=== PATIENT | male | born 1990 | race Caucasian/White ===

== ENCOUNTER 2021-03-04 05:18 | Emergency (ER) | payer OTHER ==
[2021-03-04 05:33] VITALS: BP 138/85; PULSE 77; RESP 18; TEMP 98.2
[2021-03-04] MEDS ORDERED: PROPARACAINE 0.5% OPHTH DROPS 15 ML BTL BOTH EYES STA (05:38)
[2021-03-04] MEDS ORDERED: FLUORESCEIN STRIPS 1 MG STRIP RIGHT EYE STA (06:06)
[2021-03-04] MEDS ORDERED: DIPH,PERTUS(ACELL)TETVAC-LF 0.5 ML VIAL IM ONE (06:27)
[2021-03-04] MEDS ORDERED: OFLOXACIN 0.3% OPHTH DROPS 5 ML BOTTLE RIGHT EYE STA (06:27)
--- NOTE | 2021-03-04 06:35 | ED ---
General Adult HPI - General Chief complaint: Eye Problems Stated complaint: Poss foreign body in eye Time Seen by Provider: 03/04/21 06:05 Source: patient, RN notes reviewed Mode of arrival: ambulatory Limitations: physical limitation - History of Present Illness Initial comments: 30-year-old male presents to the emergency room for right eye pain. 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 States it is painful to open and is watering. Patient does wear contacts but has not worn them for about a week. Patient denies visual changes. This is not up-to-date. Patient has no other complaints at this time including shortness of breath, chest pain, abdominal pain, nausea or vomiting, headache, or visual changes. - Related Data Previous Rx's Medication Instructions Recorded Ofloxacin 0.3% Ophth Soln [Ocuflox 2 drops RIGHT EYE QID 5 Days #10 ml 03/04/21 Ophth Soln] Allergies Allergy/AdvReac Type Severity Reaction Status Date / Time No Known Allergies Allergy Verified 03/04/21 05:33 Review of Systems ROS Statement: Those systems with pertinent positive or pertinent negative responses have been documented in the HPI. ROS Other: All systems not noted in ROS Statement are negative. Past Medical History Additional Past Medical History / Comment(s): eye-paintball injury History of Any Multi-Drug Resistant Organisms: None Reported Past Surgical History: No Surgical Hx Reported Past Psychological History: No Psychological Hx Reported Smoking Status: Current every day smoker Past Alcohol Use History: Occasional Past Drug Use History: Marijuana General Exam Limitations: physical limitation General appearance: alert, in no apparent distress Head exam: Present: atraumatic Eye exam: Present: PERRL, EOMI, conjunctival injection. Absent: scleral icterus, nystagmus ENT exam: Present: normal exam, mucous membranes moist Neck exam: Present: normal inspection, full ROM. Absent: tenderness Respiratory exam: Present: normal lung sounds bilaterally. Absent: respiratory distress, wheezes Cardiovascular Exam: Present: regular rate, normal rhythm, normal heart sounds Course Vital Signs 03/04/21 05:25 Temperature 98.2 F Pulse Rate 77 Respiratory 18 Rate Blood Pressure 138/85 O2 Sat by Pulse 99 Oximetry Medical Decision Making - Medical Decision Making Vitals are stable. Proparacaine was used to anesthetize the eye and this relieved patient's pain. Fluorosceine and Wood's lamp did reveal a small corneal abrasion. I did irrigate the eye with saline, no evidence of foreign body. I did flip both eyelids and there is no foreign body. Visual acuity is 30 OD, 20/25 OS. We will treat with antibiotic therapy to cover for contact lens user and update tetanus. He will follow up with ophthalmology. He will return here or any worsening symptoms. Disposition Clinical Impression: Corneal abrasion, right Disposition: HOME SELF-CARE Condition: Good Instructions (If sedation given, give patient instructions): Corneal Abrasion (ED) Additional Instructions: Please use antibiotic drops as directed. Follow up with ophthalmology. Return to the emergency room for any worsening symptoms. Prescriptions: Ofloxacin 0.3% Ophth Soln [Ocuflox Ophth Soln] 2 drops RIGHT EYE QID 5 Days #10 ml Is patient prescribed a controlled substance at d/c from ED?: No Referrals: Robert Clarke MD [Primary Care Provider] - 1-2 days Tom Polo MD [STAFF PHYSICIAN] - 1-2 days Time of Disposition: 06:33
== END 2021-03-04 07:04 | disposition home or self-care (01) ==
LOC: EC 05:18
DX: S05.01XA Injury of conjunctiva and corneal abrasion without foreign body, right eye, initial encounter (principal); F17.200 Nicotine dependence, unspecified, uncomplicated; F12.90 Cannabis use, unspecified, uncomplicated; X58.XXXA Exposure to other specified factors, initial encounter
CPT/HCPCS: 90471; 90715; 99283

== ENCOUNTER → 2021-09-08 | Outpatient (CLI) | payer OTHER ==
--- NOTE | 2021-09-08 21:44 | MR ---
EXAMINATION TYPE: MR knee LT wo con DATE OF EXAM: 09/08/2021 COMPARISON: Left knee x-ray July 15, 2021 HISTORY: Twisted left knee x 2 months, pain. Joint effusion. TECHNIQUE: Multiplanar, multisequence imaging of the left knee is performed without IV contrast. FINDINGS: MEDIAL MENISCUS: Anterior and posterior horns are intact without tear. LATERAL MENISCUS: Anterior and posterior horns are intact without tear. CRUCIATE LIGAMENTS: The anterior and posterior cruciate ligaments are intact and unremarkable. COLLATERAL LIGAMENTS: The medial collateral ligament and lateral collateral ligament complex are inta ct and unremarkable. EXTENSOR MECHANISM: Visualized quadriceps and patellar tendons are intact. EFFUSION: No significant suprapatellar joint effusion. POPLITEAL CYST: No popliteal/horton cyst. TRICOMPARTMENT SPACES: Tricompartment joint spaces are maintained. No significant spurring is present . CARTILAGE: Tricompartmental articular cartilage is preserved. BONE MARROW SIGNAL: No focal abnormal marrow signal is appreciated. OTHER: There is partial visualization of heterogeneous large abnormalities suspected fluid collectio n that is slightly hypointense relative to muscle on T1-weighted images and has heterogeneous T2 hype rintensity along the posterior slightly lateral aspect of the distal femur measuring up to 8.0 cm tra nsversely by 7.1 cm AP diameter axial image 35 causing popliteal vessels to be deviated medially with local mass effect lying between the muscles of the distal femur. Findings are suspicious for a large hematoma but underlying cystic mass not entirely excluded. IMPRESSION: No meniscal or ligamentous tear is seen. Partial visualization of abnormal large posterio r slightly lateral heterogeneous thin-walled area suspect complex fluid or hematoma immediately adjac ent to the distal femur between muscle fibers with local mass effect. Cystic soft tissue mass or neop lasm is not entirely excluded. Advise follow-up and clinical correlation. Patient may benefit with de dicated left femur MRI to evaluate extent of the area of concern and assess for possible muscle or te ndon rupture.
== END | disposition home or self-care (01) ==
LOC: RADMRIMAIN 10:29
PROVIDERS: ATTEND Orthopaedic Surgery
DX: M25.462 Effusion, left knee (principal)

== ENCOUNTER → 2021-10-07 | Outpatient (CLI) | payer OTHER ==
--- NOTE | 2021-10-08 03:31 | MR ---
EXAMINATION TYPE: MR knee LT wo/w con DATE OF EXAM: 10/07/2021 COMPARISON: None HISTORY: Soft tissue mass x 2, posterior and lateral aspect. Markers placed on mass. CONTRAST: Standard multiplanar, multisequence MRI departmental protocol images were obtained without contrast a nd with 9 mL intravenous Gadavist gadolinium contrast. There is small knee joint effusion. There is large posterior subcutaneous fluid collection posterior to the distal femur that measures 7 x 3 cm. There is anterior adjacent large complex mass that measur es 8 x 4 cm adjacent to the posterior distal femur. The anterior and posterior cruciate ligaments are intact. There are small intrasubstance horizontal t ear of the posterior horn of the medial meniscus. The lateral meniscus is intact. The collateral liga ments are intact. No fracture seen. No evidence of focal bone destruction. There is some patchy enhancement in the anterior mass adjacent to the femur. There is no pathologic e nhancement of the posterior mass. IMPRESSION: There is a complex oval-shaped mass posterior to the femur with patchy pathologic enhancement. This p redominantly cystic mass without enhancement that is in the subcutaneous tissues. The pathologic enha ncement raises the possibility of a tumor such as sarcoma.. Follow-up is recommended. No invasion see n of the adjacent tissues. No evidence of ligamentous tear. Small knee joint effusion. Minimal intrasubstance degeneration of th e posterior horn of the medial meniscus.
== END | disposition home or self-care (01) ==
LOC: RADMRIMAIN 10:33
PROVIDERS: ATTEND Surgery Surgical Oncology
DX: D48.1 Neoplasm of uncertain behavior of connective and other soft tissue (principal)
CPT/HCPCS: 73723; A9585

== ENCOUNTER → 2021-11-08 | Outpatient (CLI) | payer OTHER ==
--- NOTE | 2021-11-08 13:44 | CT ---
EXAMINATION TYPE: CT ChestAbdPelvis w con DATE OF EXAM: 11/08/2021 COMPARISON: None. 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 Automated Exposure Control for Dose Reduction was Utilized. CONTRAST: CT scan of the thorax, abdomen and pelvis is performed with IV Contrast, patient injected with 70 mL of Isovue 300. FINDINGS: LUNGS: Mild dependent atelectasis in the lower lobe with mild linear scarring and/or atelectasis post erior lung bases. No suspicious focal consolidation There is no pleural effusion or pneumothorax see n. The tracheobronchial tree is patent. No suspicious greater than 5 mm pulmonary nodules or masses. MEDIASTINUM: There are no greater than 1 cm hilar or mediastinal lymph nodes. No cardiomegaly or pe ricardial effusion is seen. Heterogeneous linear soft tissue in the anterior superior mediastinum li ghassan reflects residual thymus tissue. LIVER/GB: No significant abnormality is appreciated. PANCREAS: No significant abnormality is seen. SPLEEN: No significant abnormality is seen. ADRENALS: No significant abnormality is seen. KIDNEYS: No significant abnormality is seen. BOWEL: Oral Contrast reaches level proximal sigmoid colon. No suspicious small large bowel dilatation . Mild wall thickening of the terminal ileum is nonspecific finding and should be correlated clinical ly. GENITAL ORGANS: No gross abnormality seen. LYMPH NODES: No greater than 1cm abdominal or pelvic lymph nodes are appreciated. Few prominent but s ubcentimeter lymph nodes throughout the mesentery. OSSEOUS STRUCTURES: No significant abnormality is seen. OTHER: No significant additional abnormality is seen. IMPRESSION: No suspicious mass or adenopathy to suggest metastatic neoplasm.
== END | disposition home or self-care (01) ==
LOC: RADCTMAIN 10:50
PROVIDERS: ATTEND Surgery Surgical Oncology
DX: C49.9 Malignant neoplasm of connective and soft tissue, unspecified (principal)
CPT/HCPCS: 71260; 74177; Q9967

== ENCOUNTER 2021-12-06 09:32 | Inpatient (IN) | payer OTHER ==
[2021-12-06] MEDS: SODIUM CHLORIDE 0.9% 1,000 ML IV SCH ×2 (11:00→16:28)
[2021-12-06 11:14] LABS: Basophils # (A) 0.1 k/uL (0-0.2); Basophils % (A) 1 %; Eosinophils # (A) 0.4 k/uL (0-0.7); Eosinophils % (A) 3 %; HCT 44.4 % (39.0-53.0); HGB 14.5 gm/dL (13.0-17.5); Lymphocytes # (A) 2.5 k/uL (1.0-4.8); Lymphocytes % (A) 22 %; MCH 28.9 pg (25.0-35.0); MCHC 32.6 g/dL (31.0-37.0); MCV 88.7 fL (80.0-100.0); Mean Platelet Volume 7.7; Monocytes # (A) 0.6 k/uL (0-1.0); Monocytes % (A) 5 %; Neutrophils # (A) 7.8 k/uL (1.3-7.7); Neutrophils % (A) 68 %; Platelet Count 247 k/uL (150-450); RDW 12.8 % (11.5-15.5); WBC 11.5 k/uL (3.8-10.6)
[2021-12-06 11:25] LABS: ALT 65 U/L (4-49); AST 43 U/L (17-59); Alkaline Phosphatase 73 U/L (38-126); Blood Urea Nitrogen 14 mg/dL (9-20); Calcium 8.9 mg/dL (8.4-10.2); Chloride 103 mmol/L (98-107); Glucose 98 mg/dL (74-99); Potassium 4.6 mmol/L (3.5-5.1); Sodium 136 mmol/L (137-145); Total Bilirubin 0.3 mg/dL (0.2-1.3)
[2021-12-06 11:26] LABS: African American GFR (CKD) >90 (>60 ml/min/1.73 sqM); Albumin 4.2 g/dL (3.5-5.0); Albumin/Globulin Ratio 1.9; Anion Gap 8 mmol/L; Carbon Dioxide 25 mmol/L (22-30); Globulin 2.2 g/dL; Non-African American GFR(CKD) >90 (>60 ml/min/1.73 sqM); Total Protein 6.4 g/dL (6.3-8.2)
[2021-12-06] MEDS ORDERED: CYCLOBENZAPRINE 10 MG TAB PO PRN (11:46)
[2021-12-06] MEDS ORDERED: ONDANSETRON 4 MG/2 ML VIAL IVP PRN (11:50)
[2021-12-06 13:14] LABS: Appearance,Urine Clear (Clear); Bilirubin,Urine Negative (Negative); Blood,Urine Negative (Negative); Color,Urine Yellow; Glucose,Urine (UA) Negative (Negative); Ketones,Urine Negative (Negative); Leukocyte Esterase,Urine Trace (Negative); Mucus,Urine Rare /hpf; Nitrite,Urine Negative (Negative); PH, Urine 5.5 (5.0-8.0); Protein,Urine Negative (Negative); RBC,Urine <1 /hpf (0-5); Specific Gravity,Urine 1.024 (1.001-1.035); Urobilinogen,Urine <2.0 mg/dL (<2.0); WBC,Urine 1 /hpf (0-5)
[2021-12-06] MEDS ORDERED: APREPITANT 130 MG/18 ML VIAL IVP ONE (14:00)
[2021-12-06] MEDS: ONDANSETRON 16 MG in SODIUM CHLORIDE 0.9% 50 ML IVPB SCH (15:03)
[2021-12-06] MEDS: DEXAMETHASONE SOD PHOSPHATE 10 MG/ML 1 ML VIAL IVP SCH (15:03)
[2021-12-06] MEDS: FAMOTIDINE 20 MG/2 ML VIAL IVP SCH (15:03)
--- NOTE | 2021-12-06 15:17 | P.HPIM ---
History of Present Illness H&P Date: 12/06/21 Chief Complaint: Myxoid liposarcoma Mr. Katz is a 31 year old gentleman with a PMHx significant for cigarette smoking who presents for chemotherapy for myxoid liposarcoma of the left leg. He notes he first noticed this about 4-5 months ago following a mechanical fall where he rolled his right ankle. The swelling on the posterior left leg was noted at that time. Since then, it had progressive growth behind the knee of the left leg. MRI of the left knee on 09/08/21 noted heterogenous lesion on lateral aspect of left femur measuring 8 x 7.1 cm with popliteal vessels deviated medially and mass effect on muscles of the left femur. MRI of left knee on 10/07/21 noted anterior large complex mass measuring 8 x 4 cm adjacent to posterior distal femur. No evidence of bone destruction or ligament tear of the left knee was noted. Core needle biopsy of the mass on 10/11/21 noted myxoid liposarcoma without necrosis, but did note focus of high grade cells approximating < 5%. CT c/a/p on 11/08/21 noted no evidence of metastasis or adenopathy He was seen by Dr. Lane of medical oncology and Dr. Cross of orthopedic oncology with plan for neoadjuvant AIM for 3 cycles followed by neoadjuvant radiation therapy. This would then be followed by surgery. Currently, he feels well. He is planning on stopping smoking once chemotherapy starts. He denies any constitutional symptoms, chest pain, dyspnea, hemoptysis, abdominal pain, nausea, vomiting, or diarrhea. He has some limitation in bending left knee, but is otherwise ambulatory on his legs with mild pain. He does have tingling sensation down left thigh. He presents for cycle 1 of neoadjuvant AIM chemotherapy. Review of Systems 14 point review of systems was conducted with pertinent positives and negatives per HPI. Past Medical History Past Medical History: No Reported History Additional Past Medical History / Comment(s): eye-paintball injury History of Any Multi-Drug Resistant Organisms: None Reported Past Surgical History: No Surgical Hx Reported Additional Past Surgical History / Comment(s): Left leg surgery Past Anesthesia/Blood Transfusion Reactions: No Reported Reaction Past Psychological History: No Psychological Hx Reported Smoking Status: Current every day smoker Past Alcohol Use History: Occasional Past Drug Use History: Marijuana - Past Family History Mother Family Medical History: No Reported History Additional Family Medical History / Comment(s): Father: Non-Hodgkin's Lymphoma Father Family Medical History: Cancer, Congestive Heart Failure (CHF), Diabetes Mellitus Additional Family Medical History / Comment(s): Non-Castillo Medications and Allergies Home Medications Medication Instructions Recorded Confirmed Type Cyclobenzaprine [Flexeril] 10 mg PO DAILY PRN 07/15/21 07/15/21 History Ibuprofen [Motrin Ib] 800 mg PO Q8H PRN 07/15/21 07/15/21 History RX: predniSONE 50 mg PO DAILY 5 Days #5 tab 07/15/21 Rx Allergies Allergy/AdvReac Type Severity Reaction Status Date / Time No Known Allergies Allergy Verified 07/15/21 11:47 Physical Exam Vitals: Vital Signs Temp Pulse Resp BP Pulse Ox 12/06/21 10:47 97.7 F 79 18 112/70 97 Intake and Output 12/05/21 12/06/21 12/06/21 22:59 06:59 14:59 Other: Weight 93.1 kg - Constitutional General appearance: average body habitus, cooperative, no acute distress - EENT Eyes: EOMI - Respiratory Respiratory: bilateral: CTA, negative: rales, rhonchi, wheezing - Cardiovascular Rhythm: regular Heart sounds: normal: S1, S2 - Gastrointestinal General gastrointestinal: normal bowel sounds, no organomegaly, no tenderness - Integumentary Integumentary: no rash - Neurologic Neurologic: CNII-XII intact - Musculoskeletal Palpable posterior upper leg mass above the popliteal fossa without tenderness - Psychiatric Psychiatric: A&O x's 3, appropriate affect Results CBC & Chem 7: 12/06/21 10:46 12/06/21 10:46 Labs: Abnormal Lab Results - Last 24 Hours (Table) 12/06/21 12/06/21 12/06/21 Range/Units 10:46 10:46 12:58 WBC 11.5 H (3.8-10.6) k/uL Neutrophils # 7.8 H (1.3-7.7) k/uL Sodium 136 L (137-145) mmol/L ALT 65 H (4-49) U/L Ur Leukocyte Esterase Trace H (Negative) Urine Mucus Rare H (None) /hpf Thrombosis Risk Factor Assmnt - Choose All That Apply Any of the Below Risk Factors Present?: Yes Assessment and Plan Assessment: Mr. Katz is a 31 year old gentleman with a PMHx significant for cigarette smoking who presents for cycle 1 of neoadjuvant AIM chemotherapy for myxoid liposarcoma of the left leg. 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 -MRI of left knee on 10/07/21 noted anterior large complex mass measuring 8 x 4 cm adjacent to posterior distal femur -CT c/a/p on 11/08/21 noted no evidence of metastatic disease -Following multidisciplinary discussion, he will undergo neoadjuvant AIM chemotherapy with 3 cycles followed by possible adjuvant radiation therapy prior to surgical resection -Echo preliminary report showing EF 55-60% today -Proceed with cycle 1, day 1 of AIM chemotherapy -Doxorubicin 25 mg/m2, Ifosfamide 2500 mg/m2, Mesna IV for days 1,2, and 3 -He will receive anti-emetics on day 1 prior to treatment due to high emsis risk -He will be monitored for ifosfamide neurotoxicity during treatment. If there is any evidence for this (confusion, cerebellar ataxia), chemotherapy should be stopped immediately and started IV Methylene Blue 50 mg q4h -CMP, CBC, and UA daily
[2021-12-06] MEDS: MESNA IV SCH ×2 (16:14→20:14)
[2021-12-06] MEDS: SODIUM CHLORIDE 0.9% IV SCH ×4 (16:14→20:14)
[2021-12-06] MEDS: IFOSFAMIDE IV SCH (16:46)
[2021-12-06] MEDS: DOXORUBICIN HCL IV SCH (16:46)
[2021-12-06] MEDS: OLANZapine 2.5 MG TAB PO SCH (21:43)
[2021-12-07] MEDS: SODIUM CHLORIDE 0.9% IV SCH ×5 (00:13→23:58)
[2021-12-07] MEDS: MESNA IV SCH ×3 (00:13→23:58)
[2021-12-07] MEDS: SODIUM CHLORIDE 0.9% 1,000 ML IV SCH ×3 (05:22→18:14)
[2021-12-07 08:14] LABS: Appearance,Urine Clear (Clear); Bilirubin,Urine Negative (Negative); Blood,Urine Negative (Negative); Color,Urine Colorless; Glucose,Urine (UA) Negative (Negative); Ketones,Urine Trace (Negative); Leukocyte Esterase,Urine Negative (Negative); Nitrite,Urine Negative (Negative); Protein,Urine Negative (Negative); Specific Gravity,Urine 1.009 (1.001-1.035); Urobilinogen,Urine <2.0 mg/dL (<2.0)
[2021-12-07 09:14] LABS: Basophils # (A) 0.02 X 10*3/uL (0.00-0.10); Basophils % (A) 0.1 %; Eosinophils # (A) 0 X 10*3/uL (0.04-0.35); Eosinophils % (A) 0 %; HCT 43.9 % (39.6-50.0); HGB 14.2 g/dL (13.0-17.0); Immature Grans, Automated 0.9 %; Lymphocytes # (A) 1.37 X 10*3/uL (0.90-5.00); Lymphocytes % (A) 9.3 %; MCH 28.5 pg (27.0-32.0); MCHC 32.3 g/dL (32.0-37.0); MCV 88.2 fL (80.0-97.0); Mean Platelet Volume 9.6 fL (9.5-12.2); Monocytes # (A) 0.46 X 10*3/uL (0.20-1.00); Monocytes % (A) 3.1 %; NRBC Per 100 WBC 0 /100 WBCS (0.0-0.0); Neutrophils # (A) 12.77 X 10*3/uL (1.80-7.70); Neutrophils % (A) 86.6 %; Platelet Count 270 X 10*3/uL (140-440); RBC 4.98 X 10*6/uL (4.40-5.60); RDW 12.5 % (11.5-14.5); WBC 14.76 X 10*3/uL (4.50-10.00)
[2021-12-07 11:16] LABS: ALT 112 U/L (10-49); AST 65 U/L (14-35); African American GFR (CKD) 130.5 (60.0-200.0); Albumin 4.2 g/dL (3.8-4.9); Albumin/Globulin Ratio 1.83 (1.60-3.17); Alkaline Phosphatase 85 U/L (41-126); BUN/Creat Ratio 11.33 Ratio (12.00-20.00); Blood Urea Nitrogen 10.2 mg/dL (9.0-27.0); Carbon Dioxide 23.9 mmol/L (20.0-27.5); Chloride 101 mmol/L (96-109); Globulin 2.3 g/dL (1.6-3.3); Glucose 133 mg/dL (70-110); Non-African American GFR(CKD) 112.6 (60.0-200.0); Potassium 4.4 mmol/L (3.5-5.5); Sodium 137 mmol/L (135-145); Total Bilirubin <0.15 mg/dL (0.30-1.20); Total Protein 6.5 g/dL (6.2-8.2)
--- NOTE | 2021-12-07 12:44 | CA ---
Transthoracic Echo Report Name: Pito Katz Age: 31 Gender: M : 1990 Exam Date: 12/06/2021 13:31 Exam Location: [facility] Ht (in): 69 Wt (lb): 205 Ordering Physician: Junior Walden MD Attending/Referring Phys: Market Intelligence Consultant Kendra Bourgeois RDCS Procedure CPT: Indications: before starting chemo Cardiac Hx: Technical Quality: Fair Contrast 1: Total Dose (mL): Contrast 2: Total Dose (mL): MEASUREMENTS (Male / Female) Normal Values 2D ECHO LV Diastolic Diameter PLAX 4.3 cm 4.2 - 5.9 / 3.9 - 5.3 cm LV Systolic Diameter PLAX 3.0 cm IVS Diastolic Thickness 1.5 cm 0.6 - 1.0 / 0.6 - 0.9 cm LVPW Diastolic Thickness 1.4 cm 0.6 - 1.0 / 0.6 - 0.9 cm LV Relative Wall Thickness 0.7 RV Internal Dim ED PLAX 3.7 cm LA Volume 58.7 cm??? 18 - 58 / 22 - 52 cm??? M-MODE Aortic Root Diameter MM 3.4 cm LA Systolic Diameter MM 3.7 cm LA Ao Ratio MM 1.1 AV Cusp Separation MM 2.3 cm DOPPLER AV Peak Velocity 104.5 cm/s AV Peak Gradient 4.4 mmHg LVOT Peak Velocity 87.7 cm/s LVOT Peak Gradient 3.1 mmHg MV Area PHT 3.3 cm??? Mitral E Point Velocity 74.6 cm/s Mitral A Point Velocity 45.2 cm/s Mitral E to A Ratio 1.7 MV Deceleration Time 229.4 ms MV E' Velocity 12.4 cm/s Mitral E to MV E' Ratio 6.0 TR Peak Velocity 172.8 cm/s TR Peak Gradient 11.9 mmHg Right Ventricular Systolic Press 16.9 mmHg FINDINGS Left Ventricle Moderately increased left ventricular wall thickness. Normal left ventricular systolic function with no obvious regional wall motion abnormalities. Left ventricular ejection fraction is estimated at 55-60 %. Right Ventricle Mild right ventricular dilatation. Right ventricular systolic pressure within normal limits. Right Atrium Normal right atrial size. Left Atrium Normal left atrial size. Mitral Valve Structurally normal mitral valve. No mitral stenosis or prolapse. Trace mitral regurgitation. Aortic Valve Trileaflet aortic valve. No aortic valve stenosis or regurgitation. Tricuspid Valve Structurally normal tricuspid valve. Trace to mild tricuspid regurgitation. Pulmonic Valve Trace pulmonic regurgitation. Pericardium No pericardial effusion. Aorta Normal size aortic root and proximal ascending aorta. CONCLUSIONS Normal left ventricular ejection fraction 55-60% Trace mitral regurgitation Trace to mild tricuspid regurgitation Global longitudinal strain -19 Previewed by: Dr. Jose Alberto Nino DO (Electronically Signed) Final Date: 07 December 2021 12:43
[2021-12-07] MEDS: FAMOTIDINE 20 MG/2 ML VIAL IVP SCH (17:36)
[2021-12-07] MEDS: ONDANSETRON 16 MG in SODIUM CHLORIDE 0.9% 50 ML IVPB SCH (17:36)
[2021-12-07] MEDS: DEXAMETHASONE SOD PHOSPHATE 10 MG/ML 1 ML VIAL IVP SCH (17:36)
--- NOTE | 2021-12-07 17:40 | P.PN ---
Subjective Progress Note Date: 12/07/21 Principal diagnosis: Myxoid liposarcoma -Preliminary echo report revealing EF 55-60% -Started day 1, cycle 1 AIM chemotherapy yesterday afternoon -No acute events overnight -He denies any nausea, vomiting, diarrhea, confusion, ataxia, dysuria, or hematuria -He is ambulating in the halls without complications Objective - Vital Signs Vital signs: Vital Signs Temp 97.8 F 12/07/21 16:54 Pulse 82 12/07/21 16:54 Resp 16 12/07/21 12:00 BP 119/68 12/07/21 16:54 Pulse Ox 98 12/07/21 16:54 FiO2 Intake & Output 12/06/21 12/07/21 12/07/21 18:59 06:59 18:59 Intake Total 296 500 Balance 296 500 Weight 93.1 kg 96.7 kg Intake: Oral 296 500 Other: # Voids 1 2 1 - Constitutional General appearance: Present: average body habitus, no acute distress - EENT Eyes: Present: EOMI - Respiratory Respiratory: bilateral: CTA, negative: rales, rhonchi, wheezing - Cardiovascular Rhythm: regular - Gastrointestinal General gastrointestinal: Present: normal bowel sounds, soft. Absent: tenderness - Integumentary Integumentary: Absent: rash - Neurologic Neurologic: Present: CNII-XII intact. Absent: focal deficits - Musculoskeletal Musculoskeletal Comment(s): Sarcoma mass behind the left leg is unchanged - Psychiatric Psychiatric: Present: A&O x's 3, appropriate affect - Labs CBC & Chem 7: 12/07/21 06:21 12/07/21 06:21 Labs: Abnormal Lab Results - Last 24 Hours (Table) 12/07/21 12/07/21 12/07/21 Range/Units 06:21 06:21 07:45 WBC 14.76 H (4.50-10.00) X 10*3/uL Immature Gran # 0.14 H (0.00-0.04) X 10*3/uL Neutrophils # 12.77 H (1.80-7.70) X 10*3/uL Eosinophils # 0 L (0.04-0.35) X 10*3/uL BUN/Creatinine Ratio 11.33 L (12.00-20.00) Ratio Glucose 133 H (70-110) mg/dL Total Bilirubin <0.15 L (0.30-1.20) mg/dL AST 65 H (14-35) U/L ALT 112 H (10-49) U/L Urine Ketones Trace H (Negative) Assessment and Plan Assessment: Mr. Katz is a 31 year old gentleman with a PMHx significant for cigarette smoking who presents for cycle 1 of neoadjuvant AIM chemotherapy for myxoid liposarcoma of the left leg. 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 -MRI of left knee on 10/07/21 noted anterior large complex mass measuring 8 x 4 cm adjacent to posterior distal femur -CT c/a/p on 11/08/21 noted no evidence of metastatic disease -Following multidisciplinary discussion, he will undergo neoadjuvant AIM chemotherapy with 3 cycles followed by possible adjuvant radiation therapy prior to surgical resection -He is currently cycle 1, day 2 of AIM chemotherapy -Continue chemotherapy as ordered -Doxorubicin 25 mg/m2, Ifosfamide 2500 mg/m2, Mesna IV for days 1,2, and 3 -He will receive anti-emetics ordered PRN for nausea -He will be monitored for ifosfamide neurotoxicity during treatment. If there is any evidence for this (confusion, cerebellar ataxia), chemotherapy should be stopped immediately and started IV Methylene Blue 50 mg q4h -CMP, CBC, and UA daily
[2021-12-07] MEDS: IFOSFAMIDE IV SCH (19:12)
[2021-12-07] MEDS: DOXORUBICIN HCL IV SCH (19:14)
[2021-12-08] MEDS: OLANZapine 2.5 MG TAB PO SCH ×2 (00:13→20:37)
[2021-12-08] MEDS: SODIUM CHLORIDE 0.9% 1,000 ML IV SCH ×3 (00:28→15:42)
[2021-12-08] MEDS: MESNA IV SCH ×3 (03:33→23:01)
[2021-12-08] MEDS: SODIUM CHLORIDE 0.9% IV SCH ×5 (03:33→23:01)
[2021-12-08 08:41] LABS: Appearance,Urine Clear (Clear); Bilirubin,Urine Negative (Negative); Blood,Urine Negative (Negative); Color,Urine Colorless; Glucose,Urine (UA) Negative (Negative); Ketones,Urine 1+ (Negative); Leukocyte Esterase,Urine Negative (Negative); Nitrite,Urine Negative (Negative); PH, Urine 6.5 (5.0-8.0); Protein,Urine Negative (Negative); Specific Gravity,Urine 1.006 (1.001-1.035); Urobilinogen,Urine <2.0 mg/dL (<2.0)
[2021-12-08 09:29] LABS: Basophils # (A) 0.03 X 10*3/uL (0.00-0.10); Basophils % (A) 0.2 %; Eosinophils # (A) 0 X 10*3/uL (0.04-0.35); Eosinophils % (A) 0 %; HCT 40.1 % (39.6-50.0); HGB 12.8 g/dL (13.0-17.0); Lymphocytes # (A) 1.18 X 10*3/uL (0.90-5.00); Lymphocytes % (A) 7.1 %; MCH 28.4 pg (27.0-32.0); MCHC 31.9 g/dL (32.0-37.0); MCV 88.9 fL (80.0-97.0); Mean Platelet Volume 9.7 fL (9.5-12.2); Monocytes # (A) 1.15 X 10*3/uL (0.20-1.00); Monocytes % (A) 6.9 %; NRBC Per 100 WBC 0 /100 WBCS (0.0-0.0); Neutrophils # (A) 14.18 X 10*3/uL (1.80-7.70); Neutrophils % (A) 84.8 %; Platelet Count 255 X 10*3/uL (140-440); RBC 4.51 X 10*6/uL (4.40-5.60); RDW 12.9 % (11.5-14.5); WBC 16.71 X 10*3/uL (4.50-10.00)
[2021-12-08 10:07] LABS: ALT 105 U/L (10-49); AST 43 U/L (14-35); Albumin 3.9 g/dL (3.8-4.9); Albumin/Globulin Ratio 2.17 (1.60-3.17); Alkaline Phosphatase 74 U/L (41-126); Blood Urea Nitrogen 6.8 mg/dL (9.0-27.0); Calcium 8.4 mg/dL (8.7-10.3); Carbon Dioxide 21.6 mmol/L (20.0-27.5); Chloride 104 mmol/L (96-109); Globulin 1.8 g/dL (1.6-3.3); Glucose 148 mg/dL (70-110); Non-African American GFR(CKD) 118.2 (60.0-200.0); Potassium 4.1 mmol/L (3.5-5.5); Sodium 138 mmol/L (135-145); Total Bilirubin <0.15 mg/dL (0.30-1.20); Total Protein 5.7 g/dL (6.2-8.2)
[2021-12-08] MEDS ORDERED: HYDROcodone/APAP 5-325MG 1 EACH TAB PO PRN (10:48)
[2021-12-08] MEDS: DEXAMETHASONE SOD PHOSPHATE 10 MG/ML 1 ML VIAL IVP SCH (18:04)
[2021-12-08] MEDS: FAMOTIDINE 20 MG/2 ML VIAL IVP SCH (18:04)
[2021-12-08] MEDS: ONDANSETRON 16 MG in SODIUM CHLORIDE 0.9% 50 ML IVPB SCH (18:05)
[2021-12-08] MEDS ORDERED: MAGNESIUM HYDROXIDE 2,400 MG/10 ML CUP PO PRN (18:42)
[2021-12-08] MEDS ORDERED: SENNOSIDES 8.6 MG TAB PO PRN (18:43)
--- NOTE | 2021-12-08 19:05 | P.PN ---
Subjective Progress Note Date: 12/08/21 Principal diagnosis: liposarcoma, admit for AIM CIVI chemotherapy in follow-up today patient denies fevers, chills, oral irritation, he has a occasional congested cough, no purulent sputum production, palpitations, mild nausea, no vomiting, abdominal pain, distention, he thinks is mildly constipated, no dysuria, hematuria, swelling in the lower extremities. Patient is a relating. Patient is voicing moderate to severe anxiety as noted by short temper, feeling short of breath at times Objective - Vital Signs Vital signs: Vital Signs Temp 97.7 F 12/08/21 15:44 Pulse 58 L 12/08/21 15:44 Resp 18 12/08/21 15:44 BP 153/93 12/08/21 15:44 Pulse Ox 99 12/08/21 15:44 FiO2 Intake & Output 12/07/21 12/08/21 12/08/21 18:59 06:59 18:59 Intake Total 2689.8 Balance 2689.8 Weight 98.1 kg Intake: Intake, IV Titration 2689.8 Amount DOXOrubicin HCL 50 mg In 239.8 Sodium Chloride 0.9% 500 ml 500 ml @ 21.875 mls/hr IV Q24H [facility] Rx#: [id number] Ifosfamide 3,000 mg 500 Ifosfamide 2,000 mg In Sodium Chloride 0.9% 500 ml 500 ml @ 200 mls/hr IV Q24H [facility] Rx#:[id number] Mesna 1,000 mg In Sodium 150 Chloride 0.9% 50 ml @ 240 mls/hr IV Q24H [facility] Rx#: [id number] Sodium Chloride 0.9% 1, 1800 000 ml @ 150 mls/hr IV . Q6H40M [facility] Rx#:[id number] Other: # Voids 3 - Constitutional General appearance: Present: average body habitus, cooperative, mild distress - EENT EENT Comment(s): reddened, dry oral mucosa Eyes: Present: anicteric sclerae, edentulous ENT: Present: hearing grossly normal - Respiratory Respiratory: right: diminished (lower lobe), left: rales (lower lobe) - Cardiovascular Rhythm: regular Heart sounds: normal: S1, S2 Abnormal Heart Sounds: Absent: systolic murmur, diastolic murmur, rub, S3 Gallop, S4 Gallop, click, other - Peripheral edema leg Peripheral Edema: bilateral: None - Gastrointestinal General gastrointestinal: Present: normal bowel sounds, soft. Absent: absent bowel sounds, decreased bowel sounds, distended, hepatomegaly, hyperactive bowel sounds, organomegaly, rigid, scaphoid, splenomegaly, tenderness, umbilical hernia, ventral hernia - Integumentary Integumentary: Present: normal - Neurologic Neurologic: Present: CNII-XII intact - Musculoskeletal Musculoskeletal: Present: strength equal bilaterally - Psychiatric Psychiatric: Present: A&O x's 3, appropriate affect, intact judgment & insight - Labs CBC & Chem 7: 12/08/21 05:06 12/08/21 05:06 Labs: Abnormal Lab Results - Last 24 Hours (Table) 12/08/21 12/08/21 12/08/21 Range/Units 05:06 05:06 07:29 WBC 16.71 H (4.50-10.00) X 10*3/uL Hgb 12.8 L (13.0-17.0) g/dL MCHC 31.9 L (32.0-37.0) g/dL Immature Gran # 0.17 H (0.00-0.04) X 10*3/uL Neutrophils # 14.18 H (1.80-7.70) X 10*3/uL Monocytes # 1.15 H (0.20-1.00) X 10*3/uL Eosinophils # 0 L (0.04-0.35) X 10*3/uL BUN 6.8 L (9.0-27.0) mg/dL BUN/Creatinine Ratio 8.50 L (12.00-20.00) Ratio Glucose 148 H (70-110) mg/dL Calcium 8.4 L (8.7-10.3) mg/dL Total Bilirubin <0.15 L (0.30-1.20) mg/dL AST 43 H (14-35) U/L ALT 105 H (10-49) U/L Total Protein 5.7 L (6.2-8.2) g/dL Urine Ketones 1+ H (Negative) Assessment and Plan (1) Liposarcoma of left lower extremity Current Visit: Yes Status: Acute Priority: High Code(s): C49.22 - MALIG NEOPLM OF CONN AND SOFT TISS OF LEFT LOW LIMB, INC HIP SNOMED Code(s): 1 [id number] Plan: continue chemotherapy without adjustment. GI and DVT prophylaxis Addition of Xanax for anxiety Salt and soda for oral dryness Milk of magnesia added when necessary for constipation. Continue daily weights. patient has gained about 5 kg since admit. Likely related to fluids. A single dose of Lasix in the a.m. will be given. Continue labs daily. Daily follow-up. continue 4 times a day ambulation Regular diet
[2021-12-08] MEDS: IFOSFAMIDE IV SCH (19:29)
[2021-12-08] MEDS: DOXORUBICIN HCL IV SCH (19:29)
[2021-12-08] MEDS: SALT AND SODA MOUTHWASH 1,000 ML PO SCH (20:43)
[2021-12-08] MEDS: ALPRAZolam 1 MG TAB PO SCH (20:45)
[2021-12-09] MEDS: SODIUM CHLORIDE 0.9% 1,000 ML IV SCH ×5 (05:16→20:01)
[2021-12-09] MEDS: MESNA IV SCH ×2 (05:17→18:24)
[2021-12-09] MEDS: SODIUM CHLORIDE 0.9% IV SCH ×3 (05:17→20:01)
[2021-12-09 05:19] LABS: Basophils % (A) 0 %; Eosinophils % (A) 0 %; HCT 40.8 % (39.0-53.0); HGB 13.3 gm/dL (13.0-17.5); Lymphocytes # (A) 1.5 k/uL (1.0-4.8); Lymphocytes % (A) 11 %; MCH 29.3 pg (25.0-35.0); MCHC 32.7 g/dL (31.0-37.0); MCV 89.8 fL (80.0-100.0); Mean Platelet Volume 7.5; Monocytes # (A) 0.8 k/uL (0-1.0); Monocytes % (A) 6 %; Neutrophils # (A) 10.6 k/uL (1.3-7.7); Neutrophils % (A) 81 %; Platelet Count 245 k/uL (150-450); RBC 4.54 m/uL (4.30-5.90); RDW 12.7 % (11.5-15.5)
[2021-12-09] MEDS: SALT AND SODA MOUTHWASH 1,000 ML PO SCH ×5 (05:19→20:12)
--- NOTE | 2021-12-09 07:48 | XR ---
EXAMINATION TYPE: XR chest 1V portable DATE OF EXAM: 12/09/2021 COMPARISON: None INDICATION: Cough TECHNIQUE: Single frontal view of the chest is obtained. FINDINGS: The heart size is normal. The pulmonary vasculature is normal. No suspicious infiltrates are present. Port is present on the right. IMPRESSION: 1. No acute pulmonary process.
[2021-12-09] MEDS ORDERED: FUROSEMIDE 10 MG/ML 4 ML VIAL IV ONE (09:00)
[2021-12-09 09:27] LABS: African American GFR (CKD) 130.5 (60.0-200.0); Albumin/Globulin Ratio 2.11 (1.60-3.17); BUN/Creat Ratio 10.78 Ratio (12.00-20.00); Blood Urea Nitrogen 9.7 mg/dL (9.0-27.0); Calcium 8.8 mg/dL (8.7-10.3); Globulin 1.9 g/dL (1.6-3.3); Non-African American GFR(CKD) 112.6 (60.0-200.0); Potassium 4.5 mmol/L (3.5-5.5); Total Bilirubin 0.5 mg/dL (0.30-1.20); Total Protein 5.9 g/dL (6.2-8.2)
[2021-12-09 09:48] LABS: Appearance,Urine Clear (Clear); Bilirubin,Urine Negative (Negative); Blood,Urine Negative (Negative); Color,Urine Colorless; Glucose,Urine (UA) Negative (Negative); Ketones,Urine Trace (Negative); Leukocyte Esterase,Urine Negative (Negative); Nitrite,Urine Negative (Negative); PH, Urine 6.5 (5.0-8.0); Protein,Urine Negative (Negative); Specific Gravity,Urine 1.007 (1.001-1.035); Urobilinogen,Urine <2.0 mg/dL (<2.0)
[2021-12-09] MEDS: ALPRAZolam 1 MG TAB PO PRN (11:54)
--- NOTE | 2021-12-09 17:05 | P.PN ---
Subjective Progress Note Date: 12/09/21 Principal diagnosis: liposarcoma, admit for AIM CIVI chemotherapy In follow-up today patient denies fevers, persistent occasional congested cough, no palpitations, mild nausea, uses antiemetic PRN, no vomiting, abdominal pain, had a BM today, no dysuria, hematuria, swelling in the lower extremities. He had a dose of lasix today, wt is down, he did urinate a lot. Anxiety brissa geable. Objective - Vital Signs Vital signs: Vital Signs Temp 98.3 F 12/09/21 16:48 Pulse 66 12/09/21 16:48 Resp 18 12/09/21 16:48 BP 112/64 12/09/21 16:48 Pulse Ox 98 12/09/21 16:48 FiO2 Intake & Output 12/08/21 12/09/21 12/09/21 18:59 06:59 18:59 Intake Total 1800 Balance 1800 Weight 95 kg Intake: Intake, IV Titration 1800 Amount Sodium Chloride 0.9% 1, 1800 000 ml @ 150 mls/hr IV . Q6H40M [facility] Rx#:[id number] Other: # Voids 1 - Constitutional General appearance: Present: average body habitus, cooperative, no acute distress - EENT Eyes: Present: anicteric sclerae, EOMI ENT: Present: hearing grossly normal, normal oropharynx - Respiratory Respiratory: left: rales (cleared with cough) - Cardiovascular Rhythm: regular Heart sounds: normal: S1, S2 Abnormal Heart Sounds: Absent: systolic murmur, diastolic murmur, rub, S3 Gallop, S4 Gallop, click, other - Peripheral edema leg Peripheral Edema: bilateral: None - Gastrointestinal General gastrointestinal: Present: normal bowel sounds, soft - Neurologic Neurologic: Present: CNII-XII intact - Musculoskeletal Musculoskeletal: Present: strength equal bilaterally - Psychiatric Psychiatric: Present: A&O x's 3, appropriate affect, intact judgment & insight - Labs CBC & Chem 7: 12/09/21 04:39 12/09/21 04:39 Labs: Abnormal Lab Results - Last 24 Hours (Table) 12/09/21 12/09/21 12/09/21 Range/Units 04:39 04:39 09:10 WBC 13.0 H (3.8-10.6) k/uL Neutrophils # 10.6 H (1.3-7.7) k/uL BUN/Creatinine Ratio 10.78 L (12.00-20.00) Ratio ALT 101 H (10-49) U/L Total Protein 5.9 L (6.2-8.2) g/dL Urine Ketones Trace H (Negative) - Imaging and Cardiology Chest x-ray: report reviewed Assessment and Plan (1) Liposarcoma of left lower extremity Current Visit: Yes Status: Acute Priority: High Code(s): C49.22 - MALIG NEOPLM OF CONN AND SOFT TISS OF LEFT LOW LIMB, INC HIP SNOMED Code(s): 998451858 Plan: Continue chemotherapy without adjustment. He will finish in AM. Conditional DC entered GI and DVT prophylaxis with SCDs, freq ambulation-cont Addition of Xanax for anxiety provided relief Salt and soda for oral dryness Milk of magnesia added when necessary for constipation. Pt reports BM today Continue daily weights. Single dose of Lasix given, wt down today. Continue labs daily. Continue freq ambulation Regular diet Attests: I have seen and examined pt, performed H&P, developed impression and plan of care. Discussed with dictator. Agree with dictation, documented as a scribe.
[2021-12-09] MEDS: ONDANSETRON 16 MG in SODIUM CHLORIDE 0.9% 50 ML IVPB SCH (17:50)
[2021-12-09] MEDS: FAMOTIDINE 20 MG/2 ML VIAL IVP SCH (17:51)
[2021-12-09] MEDS: DEXAMETHASONE SOD PHOSPHATE 10 MG/ML 1 ML VIAL IVP SCH (17:51)
[2021-12-09] MEDS: IFOSFAMIDE IV SCH (20:01)
[2021-12-09] MEDS: ALPRAZolam 1 MG TAB PO SCH (20:09)
[2021-12-09] MEDS: OLANZapine 2.5 MG TAB PO SCH (22:47)
[2021-12-10] MEDS: MESNA IV SCH ×2 (00:13→07:02)
[2021-12-10] MEDS: SODIUM CHLORIDE 0.9% IV SCH ×2 (00:13→07:02)
[2021-12-10] MEDS: SODIUM CHLORIDE 0.9% 1,000 ML IV SCH ×3 (00:21→13:28)
[2021-12-10] MEDS: SALT AND SODA MOUTHWASH 1,000 ML PO SCH ×3 (00:34→12:19)
[2021-12-10] MEDS ORDERED: MESNA IV SCH (04:00)
[2021-12-10] MEDS ORDERED: SODIUM CHLORIDE 0.9% IV SCH (04:00)
[2021-12-10 07:47] VITALS: PULSE 63
[2021-12-10 11:54] LABS: Basophils % (A) 0 %; Eosinophils # (A) 0.1 k/uL (0-0.7); Eosinophils % (A) 1 %; HCT 40.7 % (39.0-53.0); HGB 13.9 gm/dL (13.0-17.5); Lymphocytes # (A) 2.7 k/uL (1.0-4.8); Lymphocytes % (A) 28 %; MCH 29.6 pg (25.0-35.0); MCHC 34.1 g/dL (31.0-37.0); MCV 86.7 fL (80.0-100.0); Monocytes # (A) 0.6 k/uL (0-1.0); Monocytes % (A) 6 %; Neutrophils # (A) 6.2 k/uL (1.3-7.7); Neutrophils % (A) 64 %; Platelet Count 231 k/uL (150-450); RDW 12.6 % (11.5-15.5); WBC 9.7 k/uL (3.8-10.6)
[2021-12-10 11:58] LABS: ALT 74 U/L (4-49); AST 27 U/L (17-59); African American GFR (CKD) >90 (>60 ml/min/1.73 sqM); Albumin 3.9 g/dL (3.5-5.0); Albumin/Globulin Ratio 1.8; Alkaline Phosphatase 67 U/L (38-126); Anion Gap 10 mmol/L; Blood Urea Nitrogen 16 mg/dL (9-20); Calcium 8.6 mg/dL (8.4-10.2); Carbon Dioxide 27 mmol/L (22-30); Chloride 96 mmol/L (98-107); Globulin 2.2 g/dL; Glucose 91 mg/dL (74-99); Non-African American GFR(CKD) >90 (>60 ml/min/1.73 sqM); Potassium 3.9 mmol/L (3.5-5.1); Sodium 133 mmol/L (137-145); Total Bilirubin 0.8 mg/dL (0.2-1.3); Total Protein 6.1 g/dL (6.3-8.2)
[2021-12-10] MEDS: ALPRAZolam 1 MG TAB PO PRN (12:19)
[2021-12-10 12:54] VITALS: BP 127/76; RESP 18; TEMP 98.3
== END 2021-12-10 14:06 | disposition home or self-care (01) | DRG 847 ==
LOC: 5NMEDONC 09:32
PROVIDERS: ADMIT Internal Medicine; ATTEND Internal Medicine
DX: Z51.11 Encounter for antineoplastic chemotherapy (principal); C49.22 Malignant neoplasm of connective and soft tissue of left lower limb, including hip; I08.1 Rheumatic disorders of both mitral and tricuspid valves; F41.9 Anxiety disorder, unspecified; F17.219 Nicotine dependence, cigarettes, with unspecified nicotine-induced disorders; Z28.310 Unvaccinated for COVID-19; Z80.7 Family history of other malignant neoplasms of lymphoid, hematopoietic and related tissues
CPT/HCPCS: 71045; 80053; 81001; 81003; 85025; 93306

== ENCOUNTER 2021-12-16 14:46 | Emergency (ER) | payer OTHER ==
[2021-12-16 15:19] VITALS: TEMP 98.3
[2021-12-16] MEDS ORDERED: HYDROmorphone 1 MG/ML 1 ML SYRINGE IVP STA (16:26)
[2021-12-16] MEDS ORDERED: KETOROLAC 15 MG/ML 1 ML VIAL IVP STA (16:26)
[2021-12-16] MEDS ORDERED: SODIUM CHLORIDE 0.9% 1,000 ML IV ONE (16:29)
--- NOTE | 2021-12-16 16:35 | ED ---
Back Pain HPI - General Chief Complaint: Back Pain/Injury Stated Complaint: lower back/side groin pain/had chemo Time Seen by Provider: 12/16/21 16:13 Source: patient, RN notes reviewed - History of Present Illness Initial Comments: This is a pleasant 31-year-old male presents to [facility] complaining of low back pain. 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 Patient was admitted here on December 06 for 3 cycles of chemotherapy. Patient currently being managed by the oncologist, Dr. Lane. Patient states he then was discharged after 3 days and return to the cancer center here early this week for an immune modulating injection. Patient states he was told he might have some body aches. However the patient is complaining of fairly significant pain to his low back and sacral area since having this injection. Patient states it seemed to start yesterday. Patient does take [place] for Pain. Patient denying any changes in urination or bowel movements. Patient is able to ambulate. There has been no injury. No headache, no fever or chills, no changes in vision or hearing, no sore throat or difficulty with speech, no neck pain, no chest pain or shortness of breath, no abdominal pain, no nausea or vomiting, no changes in urination or bowel movements, no numbness or tingling, no extremity pain, no skin rashes or lesions. Past medical, surgical, social, and family history reviewed. Patient does state he had full body scan a couple months ago when he was first diagnosed. - Related Data Home Medications Medication Instructions Recorded Confirmed Ibuprofen [Motrin Ib] 800 mg PO Q8H PRN 07/15/21 12/16/21 HYDROcodone/APAP 5-325MG [[place] 1 tab PO Q6H PRN 12/16/21 12/16/21 5-325] Previous Rx's Medication Instructions Recorded Ondansetron [Zofran] 4 mg PO Q4HR PRN #30 tab 12/09/21 Sennosides [Senokot] 8.6 mg PO BID PRN tab 12/09/21 Cyclobenzaprine [Flexeril] 10 mg PO TID PRN #20 tab 12/16/21 Magnesium Oxide 400 mg PO DAILY #20 tab 12/16/21 Allergies Allergy/AdvReac Type Severity Reaction Status Date / Time No Known Allergies Allergy Verified 12/16/21 19:01 Review of Systems ROS Statement: Those systems with pertinent positive or pertinent negative responses have been documented in the HPI. ROS Other: All systems not noted in ROS Statement are negative. Past Medical History Past Medical History: Cancer Additional Past Medical History / Comment(s): eye-paintball injury History of Any Multi-Drug Resistant Organisms: None Reported Past Surgical History: No Surgical Hx Reported Additional Past Surgical History / Comment(s): Left leg surgery Past Anesthesia/Blood Transfusion Reactions: No Reported Reaction Past Psychological History: No Psychological Hx Reported Smoking Status: Current every day smoker Past Alcohol Use History: Occasional Past Drug Use History: Marijuana - Past Family History Mother Family Medical History: No Reported History Additional Family Medical History / Comment(s): Father: Non-Hodgkin's Lymphoma Father Family Medical History: Cancer, Congestive Heart Failure (CHF), Diabetes Mellitus Additional Family Medical History / Comment(s): Non-[place] General Exam - General Exam Comments Initial Comments: Gait is normal. Patient does not appear to have any evidence of systemic infectious process. Mild distress. Normal color. No mottling. General appearance: alert, in no apparent distress Head exam: Present: atraumatic, normocephalic, normal inspection Eye exam: Present: normal appearance, PERRL, EOMI. Absent: scleral icterus, conjunctival injection, periorbital swelling ENT exam: Present: normal exam, normal oropharynx, mucous membranes moist, normal external ear exam. Absent: mucous membranes dry Neck exam: Present: normal inspection, full ROM. Absent: tenderness, meningismus, lymphadenopathy Respiratory exam: Present: normal lung sounds bilaterally. Absent: respiratory distress, wheezes, rales, rhonchi, stridor, chest wall tenderness, accessory muscle use, decreased breath sounds, prolonged expiratory Cardiovascular Exam: Present: regular rate, normal rhythm, normal heart sounds. Absent: systolic murmur, diastolic murmur, rubs, gallop, clicks GI/Abdominal exam: Present: soft, normal bowel sounds. Absent: distended, tenderness, guarding, rebound, rigid Extremities exam: Present: normal inspection, full ROM, normal capillary refill. Absent: tenderness, pedal edema, joint swelling, calf tenderness Back exam: Present: normal inspection, full ROM (With pain in the lumbosacral area). Absent: paraspinal tenderness (No discernible point tenderness), vertebral tenderness, rash noted, other Neurological exam: Present: alert, oriented X3, CN II-XII intact, normal gait, reflexes normal. Absent: abnormal gait, motor sensory deficit (Sensory status intact to bilateral lower extremities.) Expanded Patient oriented to: Present: person, place, time Speech: Present: fluid speech Cranial nerves: EOM's Intact: Normal Ataxia: Absent: yes Motor strength exam: RUE: 5, LUE: 5, RLE: 5, LLE: 5 Psychiatric exam: Present: normal affect, normal mood Skin exam: Present: warm, dry, intact, normal color. Absent: rash Course Vital Signs 12/16/21 12/16/21 15:15 18:52 Temperature 98.3 F Pulse Rate 92 85 Respiratory 16 20 Rate Blood Pressure 125/80 143/75 O2 Sat by Pulse 98 99 Oximetry - Reevaluation(s) Reevaluation #1: 12/16/21 20:13 Medical record is reviewed Symptoms are improved here in the emergency department Patient is informed of results and questions answered Patient in no distress Reevaluation #2: 12/16/21 20:19 Patient was resting comfortably at the time of discharge. - Consultations Consultation #1: Case discussed in detail with the patient's oncologist out of [place], Dr. Lane. Apparently the patient was sent up here after they could not get the proper chemotherapy regimen going. Patient has been followed up here by Dr. Walden. Oncologist does agree with imaging the patientcomputed tomography scan is ordered. Medical Decision Making - Medical Decision Making Certainly the patient's symptomology could be related to the immune modulating shot. Patient tried to get hold of his psychologist today but was unable to. Patient here with increasing pain to his lumbosacral area pelvis area. History of myxoid liposarcoma. I'm going to image the patient to ensure there is no pathology in this area. Patient has no symptomology consistent with cauda equina syndrome. No saddle anesthesia. Normal gait. No problems with bowel when she urination. Patient did have slightly low magnesium which was supplemented. Patient's computed tomography scan of his back and pelvis showed no evidence of acute pathology. Case discussed the case with the patient's oncologist out of [place]. Patient does follow with Dr. Walden here in [place]. We will have the patient follow-up on Sunday without fail. Patient notices. We'll supplement magnesium and add Flexeril to the patient's home pain medication regimen. Return if follow-up parameters discussed. All questions answered. Again, patient had no symptomology concerning for cauda equina syndrome or infectious process. The patient's immune boosting injection he received can cause general aches and pains. Supervising physician is Dr. Woodard - Lab Data Result diagrams: 12/16/21 16:44 12/16/21 16:44 Lab Results 12/16/21 12/16/21 12/16/21 Range/Units 16:44 16:44 16:44 WBC 3.7 L (3.8-10.6) k/uL RBC 4.20 L (4.30-5.90) m/uL Hgb 12.3 L (13.0-17.5) gm/dL Hct 37.0 L (39.0-53.0) % MCV 88.0 (80.0-100.0) fL MCH 29.3 (25.0-35.0) pg MCHC 33.3 (31.0-37.0) g/dL RDW 11.9 (11.5-15.5) % Plt Count 138 L (150-450) k/uL MPV 8.1 Neutrophils % (Manual) 21 % Lymphocytes % (Manual) 63 % Monocytes % (Manual) 11 % Eosinophils % (Manual) 3 % Basophils % (Manual) 2 % Neutrophils # (Manual) 0.78 L (1.3-7.7) k/uL Lymphocytes # (Manual) 2.33 (1.0-4.8) k/uL Monocytes # (Manual) 0.41 (0-1.0) k/uL Eosinophils # (Manual) 0.11 (0-0.7) k/uL Basophils # (Manual) 0.07 (0-0.2) k/uL Nucleated RBCs 0 (0-0) /100 WBC Manual Slide Review Performed RBC Morphology Normal ESR 8 (0-15) mm/hr Sodium 134 L (137-145) mmol/L Potassium 4.3 (3.5-5.1) mmol/L Chloride 96 L (98-107) mmol/L Carbon Dioxide 27 (22-30) mmol/L Anion Gap 11 mmol/L BUN 7 L (9-20) mg/dL Creatinine 0.72 (0.66-1.25) mg/dL Est GFR (CKD-EPI)AfAm >90 (>60 ml/min/1.73 sqM) Est GFR (CKD-EPI)NonAf >90 (>60 ml/min/1.73 sqM) Glucose 97 (74-99) mg/dL Calcium 8.8 (8.4-10.2) mg/dL Magnesium 1.5 L (1.6-2.3) mg/dL Total Bilirubin 0.4 (0.2-1.3) mg/dL AST 67 H (17-59) U/L ALT 143 H (4-49) U/L Alkaline Phosphatase 82 (38-126) U/L C-Reactive Protein 2.1 H (<1.0) mg/dL Total Protein 6.2 L (6.3-8.2) g/dL Albumin 4.1 (3.5-5.0) g/dL Urine Color Yellow Urine Appearance Clear (Clear) Urine pH 7.0 (5.0-8.0) Ur Specific [place] Mark 1.014 (1.001-1.035) Urine Protein Negative (Negative) Urine Glucose (UA) Negative (Negative) Urine Ketones Negative (Negative) Urine Blood Negative (Negative) Urine Nitrite Negative (Negative) Urine Bilirubin Negative (Negative) Urine Urobilinogen <2.0 (<2.0) mg/dL Ur Leukocyte Esterase Negative (Negative) Disposition Clinical Impression: Low back pain, Hypomagnesemia, History of lymphosarcoma Disposition: HOME SELF-CARE Condition: Good Instructions (If sedation given, give patient instructions): Acute Low Back Pain (ED), Hypomagnesemia (ED) Additional Instructions: Follow-up with your oncologist on Sunday without fail. Follow-up with your regular physician as directed. Return to the ER immediately if any symptoms worsen, new symptoms arise, or any other problems develop. Return immediately if any problems with fever, increased pain, gait, bowel, or bladder function occur. Prescriptions: Cyclobenzaprine [Flexeril] 10 mg PO TID PRN #20 tab PRN Reason: Spasms Magnesium Oxide 400 mg PO DAILY #20 tab Is patient prescribed a controlled substance at d/c from ED?: No Referrals: Robert Clarke MD [Primary Care Provider] - 1-2 days Junior Walden MD [STAFF PHYSICIAN] - 12/19/21 8:00 am Time of Disposition: 20:15
[2021-12-16 17:02] LABS: HGB 12.3 gm/dL (13.0-17.5); MCH 29.3 pg (25.0-35.0); MCHC 33.3 g/dL (31.0-37.0); Mean Platelet Volume 8.1; Platelet Count 138 k/uL (150-450); RDW 11.9 % (11.5-15.5); WBC 3.7 k/uL (3.8-10.6)
[2021-12-16 17:08] LABS: Appearance,Urine Clear (Clear); Bilirubin,Urine Negative (Negative); Blood,Urine Negative (Negative); Color,Urine Yellow; Glucose,Urine (UA) Negative (Negative); Ketones,Urine Negative (Negative); Leukocyte Esterase,Urine Negative (Negative); Nitrite,Urine Negative (Negative); Protein,Urine Negative (Negative); Specific Gravity,Urine 1.014 (1.001-1.035); Urobilinogen,Urine <2.0 mg/dL (<2.0)
[2021-12-16 17:49] LABS: ALT 143 U/L (4-49); AST 67 U/L (17-59); African American GFR (CKD) >90 (>60 ml/min/1.73 sqM); Albumin 4.1 g/dL (3.5-5.0); Alkaline Phosphatase 82 U/L (38-126); Anion Gap 11 mmol/L; Blood Urea Nitrogen 7 mg/dL (9-20); Calcium 8.8 mg/dL (8.4-10.2); Carbon Dioxide 27 mmol/L (22-30); Chloride 96 mmol/L (98-107); Glucose 97 mg/dL (74-99); Magnesium 1.5 mg/dL (1.6-2.3); Non-African American GFR(CKD) >90 (>60 ml/min/1.73 sqM); Potassium 4.3 mmol/L (3.5-5.1); Sodium 134 mmol/L (137-145); Total Bilirubin 0.4 mg/dL (0.2-1.3); Total Protein 6.2 g/dL (6.3-8.2)
[2021-12-16 17:52] LABS: Basophils # (M) 0.07 k/uL (0-0.2); Eosinophils # (M) 0.11 k/uL (0-0.7); Lymphocytes # (M) 2.33 k/uL (1.0-4.8); Monocytes # (M) 0.41 k/uL (0-1.0); Neutrophils # (M) 0.78 k/uL (1.3-7.7); Neutrophils % (M) 21 %; Nucleated Red Blood Cells 0 /100 WBC (0-0); Total Cells Counted 100
[2021-12-16 17:53] LABS: RBC Morphology Normal
[2021-12-16 17:59] LABS: Erythrocyte Sedimentation Rate 8 mm/hr (0-15)
[2021-12-16 18:02] LABS: C Reactive Protein 2.1 mg/dL (<1.0)
--- NOTE | 2021-12-16 18:44 | CT ---
EXAMINATION TYPE: CT lumbar spine w con DATE OF EXAM: 12/16/2021 COMPARISON: 11/08/2021 HISTORY: low back pain, no injury CT DLP: 1085.2 mGycm Automated exposure control for dose reduction was used. CONTRAST: Performed with IV Contrast, patient injected with 100 mL of Isovue 300. Images obtained from T12 through S2 vertebra without contrast. The lumbar vertebrae have normal spacing and alignment. Posterior elements are intact. Facet joints a re intact. Prevertebral soft tissues are intact. There is no paraspinal mass. No compression fracture . Sacroiliac joints are intact. There is no pathologic enhancement. No evidence of a soft tissue mass . IMPRESSION: Normal CT scan of the lumbar spine. No fracture. No change compared to the old exam no evidence of an y significant lumbar disc herniation or spinal stenosis.
--- NOTE | 2021-12-16 18:48 | CT ---
EXAMINATION TYPE: CT pelvis w con DATE OF EXAM: 12/16/2021 COMPARISON: 11/08/2021 HISTORY: pelvic pain, no injury CT DLP: 1000.8 mGycm Automated exposure control for dose reduction was used. CONTRAST: Performed with IV Contrast, patient injected with 100 mL of Isovue 300. Images obtained from the iliac crest to the subtrochanteric femurs with IV contrast. The bladder distends smoothly. No pelvic mass. No free fluid in the pelvis. No sign of a bowel obstru ction. The pelvic ring is intact. Sacroiliac joints are intact. Sacrum and coccyx appear normal. Urinary juan dder distends smoothly. The hip joints are intact. No pathologic enhancement. No pelvic lymphadenopat hy. IMPRESSION: Negative CT scan of the pelvis. No evidence of a tumor.
[2021-12-16 18:54] VITALS: BP 143/75; PULSE 85; RESP 20
[2021-12-16] MEDS ORDERED: MAGNESIUM OXIDE 400 MG TAB PO STA (20:11)
[2021-12-16] MEDS ORDERED: CYCLOBENZAPRINE 10MG STARTER 3 TAB BTL PO STA (20:15)
== END 2021-12-16 20:31 | disposition home or self-care (01) ==
LOC: EC 14:46
DX: M54.50 Low back pain, unspecified (principal); E83.42 Hypomagnesemia; F17.200 Nicotine dependence, unspecified, uncomplicated; F12.90 Cannabis use, unspecified, uncomplicated; Z85.72 Personal history of non-Hodgkin lymphomas
CPT/HCPCS: 36415; 80053; 85652; 83735; 85025; 86140; 81003; 72193; 72132; 99284; 96374; 96375; 96361; J1170; J1885; Q9967

== ENCOUNTER 2022-01-09 09:06 | Inpatient (IN) | payer OTHER ==
[2022-01-09 09:47] LABS: Basophils # (A) 0.1 k/uL (0-0.2); Basophils % (A) 1 %; Eosinophils # (A) 0.4 k/uL (0-0.7); Eosinophils % (A) 6 %; HCT 39.1 % (39.0-53.0); HGB 13.2 gm/dL (13.0-17.5); Lymphocytes # (A) 1.8 k/uL (1.0-4.8); Lymphocytes % (A) 28 %; MCH 29.8 pg (25.0-35.0); MCHC 33.8 g/dL (31.0-37.0); MCV 88.3 fL (80.0-100.0); Mean Platelet Volume 7.1; Monocytes # (A) 0.7 k/uL (0-1.0); Monocytes % (A) 11 %; Neutrophils # (A) 3.2 k/uL (1.3-7.7); Neutrophils % (A) 49 %; RBC 4.43 m/uL (4.30-5.90); RDW 14.1 % (11.5-15.5); WBC 6.5 k/uL (3.8-10.6)
[2022-01-09 09:57] LABS: Platelet Count 322 k/uL (150-450)
[2022-01-09 09:59] LABS: ALT 83 U/L (4-49); AST 58 U/L (17-59); African American GFR (CKD) >90 (>60 ml/min/1.73 sqM); Albumin 4.2 g/dL (3.5-5.0); Albumin/Globulin Ratio 1.8; Alkaline Phosphatase 79 U/L (38-126); Anion Gap 7 mmol/L; Blood Urea Nitrogen 16 mg/dL (9-20); Calcium 8.7 mg/dL (8.4-10.2); Carbon Dioxide 29 mmol/L (22-30); Chloride 103 mmol/L (98-107); Globulin 2.4 g/dL; Glucose 87 mg/dL (74-99); Non-African American GFR(CKD) >90 (>60 ml/min/1.73 sqM); Potassium 4.6 mmol/L (3.5-5.1); Sodium 139 mmol/L (137-145); Total Bilirubin 0.4 mg/dL (0.2-1.3); Total Protein 6.6 g/dL (6.3-8.2)
[2022-01-09] MEDS ORDERED: ALTEPLASE 2 MG VIAL (CATHFLO) IV STA ×2 (10:29→11:57)
[2022-01-09] MEDS ORDERED: SENNOSIDES 8.6 MG TAB PO PRN (10:57)
[2022-01-09] MEDS ORDERED: CYCLOBENZAPRINE 10 MG TAB PO PRN (10:57)
[2022-01-09] MEDS ORDERED: HYDROcodone/APAP 5-325MG 1 EACH TAB PO PRN (10:57)
[2022-01-09] MEDS: SALT AND SODA MOUTHWASH 1,000 ML PO SCH ×3 (14:59→20:08)
[2022-01-09] MEDS: SODIUM CHLORIDE 0.9% 1,000 ML IV SCH (16:47)
[2022-01-09] MEDS ORDERED: DEXAMETHASONE SOD PHOSPHATE 10 MG/ML 1 ML VIAL IV SCH (17:00)
[2022-01-09] MEDS ORDERED: APREPITANT 130 MG/18 ML VIAL IV ONE (17:00)
[2022-01-09] MEDS ORDERED: FAMOTIDINE 20 MG/2 ML VIAL IV SCH (17:00)
[2022-01-09] MEDS ORDERED: ONDANSETRON 16 MG in SODIUM CHLORIDE 0.9% 50 ML IVPB SCH (17:00)
[2022-01-09] MEDS ORDERED: MESNA IV SCH (18:00)
[2022-01-09] MEDS ORDERED: IFOSFAMIDE IV SCH (18:00)
[2022-01-09] MEDS ORDERED: SODIUM CHLORIDE 0.9% IV SCH ×3 (18:00)
[2022-01-09] MEDS ORDERED: DOXORUBICIN HCL IV SCH (18:00)
[2022-01-09 18:11] LABS: Appearance,Urine Clear (Clear); Bilirubin,Urine Negative (Negative); Blood,Urine Negative (Negative); Color,Urine Light Yellow; Glucose,Urine (UA) Negative (Negative); Ketones,Urine Negative (Negative); Leukocyte Esterase,Urine Negative (Negative); Nitrite,Urine Negative (Negative); Protein,Urine Negative (Negative); Specific Gravity,Urine 1.017 (1.001-1.035); Urobilinogen,Urine <2.0 mg/dL (<2.0)
[2022-01-09] MEDS ORDERED: ALPRAZolam 1 MG TAB PO PRN (18:37)
--- NOTE | 2022-01-09 21:29 | P.HPIM ---
History of Present Illness H&P Date: 01/09/22 Chief Complaint: Admit for CIVI AIM for leomyosarcima Mr. Katz is a 31 year old male who is admitted for cycle #2 AIM for for myxoid liposarcoma of the left leg. He first noted swelling in the left thigh about 5-6 months ago following a fall when he rolled his right ankle. It increased in size so, he had it examined. MRI of the left knee 09/08/21 noted heterogenous lesion on lateral aspect of left femur measuring 8 x 7.1 cm with popliteal vessels deviated medially and mass effect on muscles of the left femur. MRI of left knee on 10/07/21 noted anterior large complex mass measuring 8 x 4 cm adjacent to posterior distal femur. No evidence of bone destruction or ligament tear. Core needle biopsy 10/11/21 reveled myxoid liposarcoma without necrosis, focus of high grade cells approximating < 5%. CT CAP 11/08/21 noted no evidence of metastasis or adenopathy. He was seen by Dr. Lane of Medical Oncology and Dr. Cross of Orthopedic Oncology with plan for neoadjuvant AIM x 3 cycles followed by neoadjuvant radiation therapy. He did well with cycle #1 overall. On admit t [place] he has no c/o on a 14 point ROS. He feels the mass in the leg is smaller, softer. He is ambulatory. Review of Systems 10 point ROS is neg Past Medical History Past Medical History: Cancer, Seizure Disorder Additional Past Medical History / Comment(s): eye-paintball injury History of Any Multi-Drug Resistant Organisms: None Reported Past Surgical History: No Surgical Hx Reported Additional Past Surgical History / Comment(s): Left leg biopsy Past Anesthesia/Blood Transfusion Reactions: No Reported Reaction Past Psychological History: No Psychological Hx Reported Smoking Status: Former smoker Past Alcohol Use History: Occasional Past Drug Use History: Marijuana - Past Family History Mother Family Medical History: No Reported History Additional Family Medical History / Comment(s): Father: Non-Hodgkin's Lymphoma Father Family Medical History: Cancer, Congestive Heart Failure (CHF), Diabetes Mellitus Additional Family Medical History / Comment(s): Father: Non-Hodgkin's Lymphoma passed 2012 Medications and Allergies Home Medications Medication Instructions Recorded Confirmed Type Cyclobenzaprine [Flexeril] 10 mg PO TID PRN #20 tab 12/16/21 01/09/22 Rx HYDROcodone/APAP 5-325MG [[place] 1 tab PO Q6H PRN 12/16/21 01/09/22 History 5-325] Allergies Allergy/AdvReac Type Severity Reaction Status Date / Time No Known Allergies Allergy Verified 01/09/22 11:02 Physical Exam Vitals: Vital Signs Temp Pulse Resp BP Pulse Ox 01/09/22 09:31 97.4 F L 70 18 147/92 94 L Intake and Output 01/08/22 01/09/22 01/09/22 22:59 06:59 14:59 Other: Weight 99.875 kg - Constitutional General appearance: average body habitus, cooperative, no acute distress - EENT Eyes: anicteric sclerae, EOMI ENT: hearing grossly normal, normal oropharynx - Neck Neck: no lymphadenopathy - Respiratory Respiratory: bilateral: CTA - Cardiovascular Rhythm: regular Heart sounds: normal: S1, S2 Abnormal Heart Sounds: no systolic murmur, no diastolic murmur, no rub, no S3 Gallop, no S4 Gallop, no click, no other leg Peripheral Edema: bilateral: None - Gastrointestinal General gastrointestinal: no absent bowel sounds, no decreased bowel sounds, no distended, no hepatomegaly, no hyperactive bowel sounds, normal bowel sounds, no organomegaly, no rigid, no scaphoid, soft, no splenomegaly, no tenderness, no umbilical hernia, no ventral hernia - Integumentary Integumentary: normal - Neurologic Neurologic: CNII-XII intact - Musculoskeletal Lt posterior/lateral thigh mass, size of a ambler, smaller, softer Musculoskeletal: strength equal bilaterally - Psychiatric Psychiatric: A&O x's 3, appropriate affect, intact judgment & insight Results CBC & Chem 7: 01/09/22 09:38 01/09/22 09:38 Labs: Abnormal Lab Results - Last 24 Hours (Table) 01/09/22 Range/Units 09:38 ALT 83 H (4-49) U/L Thrombosis Risk Factor Assmnt - DVT/VTE Prophylaxis DVT/VTE Prophylaxis: Pharmacologic Prophylaxis ordered Assessment and Plan (1) Liposarcoma of left lower extremity Current Visit: Yes Status: Acute Priority: High Code(s): C49.22 - MALIG NEOPLM OF CONN AND SOFT TISS OF LEFT LOW LIMB, INC HIP SNOMED Code(s): 491346167 (2) Anxiety about health Current Visit: Yes Status: Acute Priority: High Code(s): F41.8 - OTHER SPECIFIED ANXIETY DISORDERS SNOMED Code(s): 922117997 (3) Low back pain Current Visit: No Status: Chronic Priority: Medium Code(s): M54.50 - LOW BACK PAIN, UNSPECIFIED SNOMED Code(s): 650123269 Plan: Admit for CIVI AIM cycle #2. Cathflo ordered-no blood return from port, pending port a gram to verify placement Home meds reconciled. Xanax while inpt for anxiety Ambulate 5 x day with shoes on [place] fluids. Regular diet CBC, CMP, UA daily while inpt Daily f/u Daily wt GI and DVT prophylaxis Attests: I have seen and examined pt, performed H&P, developed impression and plan of care. Discussed with dictator. Agree with documentation, dictated as a scribe.
[2022-01-10] MEDS: SODIUM CHLORIDE 0.9% 1,000 ML IV SCH (01:05)
[2022-01-10] MEDS: SALT AND SODA MOUTHWASH 1,000 ML PO SCH ×2 (01:06→06:10)
[2022-01-10 05:50] VITALS: BP 122/56; PULSE 63; RESP 16; TEMP 98.1
[2022-01-10] MEDS ORDERED: ENOXAPARIN 40 MG/0.4 ML SYRINGE SQ SCH (09:00)
[2022-01-10] MEDS ORDERED: MAGNESIUM OXIDE 400 MG TAB PO SCH (09:00)
[2022-01-10] MEDS ORDERED: IOPAMIDOL-370 50ML BTL INJ ONE (11:16)
--- NOTE | 2022-01-10 18:16 | P.DS ---
Providers Date of admission: 01/09/22 09:06 Expected date of discharge: 01/10/22 Attending physician: Junior Walden MD Consults: none Primary care physician: Stated None - Discharge Diagnosis(es) (1) Liposarcoma of left lower extremity Status: Acute Priority: High (2) Anxiety about health Status: Acute Priority: High (3) Low back pain Status: Chronic Priority: Medium Hospital Course: Pt admitted for cycle #2 AIM, CIVI. No blood return from port, alteplase x 2, still no results. Port a gram done, findings most consistent with cracked port. Unable to have a PICC line placed today. Pt very frustrated Plan for DC and readmit next Sunday PICC line placement later this week outpt [place] sent from ofc. Will refer back to surgeon to remove port in the near future Assessment: 10 point physical exam is WNL Procedures: portocathogram-Radiologist suspects leaking from the back of the port Patient Condition at Discharge: Stable Plan - Discharge Summary Discharge Rx Participant: Yes New Discharge Prescriptions: New HYDROcodone/APAP 10-325MG [[place] 10-325] 1 tab PO Q6HR PRN 3 Days #12 tab PRN Reason: Pain Discontinued HYDROcodone/APAP 5-325MG [[place] 5-325] 1 tab PO Q6H PRN PRN Reason: Pain No Action Cyclobenzaprine [Flexeril] 10 mg PO TID PRN #20 tab PRN Reason: Spasms Discharge Medication List Cyclobenzaprine [Flexeril] 10 mg PO TID PRN #20 tab 12/16/21 [Rx] HYDROcodone/APAP 10-325MG [[place] 10-325] 1 tab PO Q6HR PRN 3 Days #12 tab 01/10/22 [Rx] Activity/Diet/Wound Care/Special Instructions: Onc ofc will contact pt with dates and times of appts Discharge Disposition: HOME SELF-CARE Pending Studies Pending Results: none
--- NOTE | 2022-01-30 08:54 | IR ---
Fluoroscopic portogram(mediport). HISTORY: Device malfunction. The patient presented to the CVL with a Lopez needle within the port. Preliminary fluoroscopy demonst rates extravasation near the junction of the port and catheter. SPECT catheter injury or laceration. Report called to referring clinician. IMPRESSION: 1. Contrast extravasation seen at the junction of the port and catheter insertion suggesting catheter injury. See above.
== END 2022-01-10 12:14 | disposition home or self-care (01) | DRG 847 ==
LOC: 5NMEDONC 09:06
PROVIDERS: ADMIT Internal Medicine; ATTEND Internal Medicine
DX: Z51.11 Encounter for antineoplastic chemotherapy (principal); T82.534A Leakage of infusion catheter, initial encounter; Z53.09 Procedure and treatment not carried out because of other contraindication; C76.52 Malignant neoplasm of left lower limb; F06.4 Anxiety disorder due to known physiological condition; M54.50 Low back pain, unspecified; G40.909 Epilepsy, unspecified, not intractable, without status epilepticus; Z87.891 Personal history of nicotine dependence; Z80.7 Family history of other malignant neoplasms of lymphoid, hematopoietic and related tissues
CPT/HCPCS: 36598; 80053; 81003; 83735; 85025

== ENCOUNTER 2022-01-13 09:52 | Day surgery (SDC) | payer OTHER ==
[2022-01-13 11:16] VITALS: RESP 16; TEMP 98
[2022-01-13] MEDS ORDERED: LIDOCAINE 1% INJ 10MG/ML (30 ML VIAL-PF) SQ ONE (11:28)
--- NOTE | 2022-01-13 11:51 | IR ---
PICC LINE PLACEMENT: HISTORY: Infection requiring long-term antibiotic therapy PROCEDURE: Ultrasound and fluoroscopic guidance of PICC line placement. COMPLICATIONS: None ANESTHESIA: 1. 1% Lidocaine locally. FINDINGS/TECHNIQUE: The procedure was explained to the patient. The risks, complications, benefits and alternatives were discussed and any questions were answered. Informed consent was obtained. The patient was placed supine on the fluoroscopic table and prepped and draped in the usual sterile fash ion. Utilizing a 21 gauge needle and sonographic and fluoroscopic guidance, access in the left basi lic vein was achieved and there is placement of a 0.018 guidewire. The vein is patent. A 4-F sheath was placed over the guidewire. The guidewire and dilator were removed and a 4-F. PICC line was plac ed through the sheath with the tip at the level of the SVC. The sheath was removed, the catheter was flushed and sutured into position. The patient was stable throughout the procedure and remained sta ble upon discharge from the Department of Radiology. The vein puncture was patent under ultrasound. A pantoja scale image was obtained to document patency of the vein punctured. All elements of the maximal barrier technique were utilized. FLUOROSCOPY TIME: 0.1 minutes and 1 images submitted IMPRESSION: Successful PICC line placement under ultrasound and fluoroscopic guidance.
[2022-01-13 11:56] VITALS: BP 133/85; PULSE 65
== END 2022-01-13 11:48 | disposition home or self-care (01) ==
LOC: CATHCVL 09:52
PROVIDERS: ATTEND Radiology Diagnostic Radiology
DX: C49.22 Malignant neoplasm of connective and soft tissue of left lower limb, including hip (principal); F41.8 Other specified anxiety disorders; G40.909 Epilepsy, unspecified, not intractable, without status epilepticus; F12.90 Cannabis use, unspecified, uncomplicated; Z87.891 Personal history of nicotine dependence; Z79.2 Long term (current) use of antibiotics; Z86.59 Personal history of other mental and behavioral disorders; Z80.7 Family history of other malignant neoplasms of lymphoid, hematopoietic and related tissues; Z83.3 Family history of diabetes mellitus; Z82.49 Family history of ischemic heart disease and other diseases of the circulatory system
CPT/HCPCS: 36573; C1751; C1769; J2001

== ENCOUNTER 2022-01-16 08:59 | Inpatient (IN) | payer OTHER ==
[2022-01-16] MEDS ORDERED: ALPRAZolam 1 MG TAB PO PRN (10:24)
[2022-01-16] MEDS: SODIUM CHLORIDE 0.9% 1,000 ML IV SCH ×2 (12:20→21:20)
[2022-01-16] MEDS ORDERED: APREPITANT 130 MG/18 ML VIAL IV ONE (12:30)
[2022-01-16 13:09] LABS: Basophils # (A) 0.1 k/uL (0-0.2); Basophils % (A) 2 %; Eosinophils # (A) 0.5 k/uL (0-0.7); Eosinophils % (A) 6 %; HCT 38.6 % (39.0-53.0); Lymphocytes # (A) 1.7 k/uL (1.0-4.8); Lymphocytes % (A) 22 %; MCH 29.5 pg (25.0-35.0); MCHC 33.7 g/dL (31.0-37.0); MCV 87.7 fL (80.0-100.0); Mean Platelet Volume 7.2; Monocytes # (A) 0.6 k/uL (0-1.0); Monocytes % (A) 8 %; Neutrophils # (A) 4.6 k/uL (1.3-7.7); Neutrophils % (A) 60 %; Platelet Count 260 k/uL (150-450); RDW 13.9 % (11.5-15.5); WBC 7.6 k/uL (3.8-10.6)
[2022-01-16 13:21] LABS: ALT 67 U/L (4-49); AST 44 U/L (17-59); African American GFR (CKD) >90 (>60 ml/min/1.73 sqM); Albumin 4.3 g/dL (3.5-5.0); Albumin/Globulin Ratio 1.9; Alkaline Phosphatase 73 U/L (38-126); Anion Gap 8 mmol/L; Blood Urea Nitrogen 12 mg/dL (9-20); Calcium 8.6 mg/dL (8.4-10.2); Carbon Dioxide 26 mmol/L (22-30); Chloride 104 mmol/L (98-107); Globulin 2.3 g/dL; Glucose 87 mg/dL (74-99); Non-African American GFR(CKD) >90 (>60 ml/min/1.73 sqM); Sodium 138 mmol/L (137-145); Total Bilirubin 0.3 mg/dL (0.2-1.3); Total Protein 6.6 g/dL (6.3-8.2)
[2022-01-16] MEDS: DEXAMETHASONE SOD PHOSPHATE 10 MG/ML 1 ML VIAL IV SCH (13:23)
[2022-01-16] MEDS: FAMOTIDINE 20 MG/2 ML VIAL IV SCH (13:24)
[2022-01-16] MEDS: MESNA IV SCH ×3 (13:34→22:26)
[2022-01-16] MEDS: SODIUM CHLORIDE 0.9% IV SCH ×5 (13:34→22:26)
[2022-01-16] MEDS: ONDANSETRON 16 MG in SODIUM CHLORIDE 0.9% 50 ML IVPB SCH (13:59)
[2022-01-16] MEDS: DOXORUBICIN HCL IV SCH (14:21)
[2022-01-16] MEDS: IFOSFAMIDE IV SCH (14:21)
--- NOTE | 2022-01-16 18:37 | P.HPIM ---
History of Present Illness H&P Date: 01/16/22 Chief Complaint: Cycle number 2 CIVI AIM for myxoid lipomasarcoma Mr. Katz is a 31 year old male who is admitted for cycle #2 AIM for for myxoid liposarcoma of the left leg-He was due 01/09/22 but his port was defective. He was sent home. Patient has had a PICC line placed for treatment 01/13/22. He first noted swelling in the left thigh about 5-6 months ago following a fall when he rolled his right ankle. It increased in size so, he had it examined. MRI of the left knee 09/08/21 noted heterogenous lesion on lateral aspect of left femur measuring 8 x 7.1 cm with popliteal vessels deviated medially and mass effect on muscles of the left femur. MRI of left knee on 10/07/21 noted anterior large complex mass measuring 8 x 4 cm adjacent to posterior distal femur. No e vidence of bone destruction or ligament tear. Core needle biopsy 10/11/21 reveled myxoid liposarcoma without necrosis, focus of high grade cells approximating < 5%. CT CAP 11/08/21 noted no evidence of metastasis or adenopathy. He was seen by Dr. Lane of Medical Oncology and Dr. Cross of Orthopedic Oncology with plan for neoadjuvant AIM x 3 cycles followed by neoadjuvant radiation therapy. He did well with cycle #1 overall, only some mild nausea, resolved after patient picked up his anti-emetic prescription. On admit today he has no c/o on a 14 point ROS. He feels the mass in the leg is smaller, softer. He is ambulatory. Review of Systems 10 point review of systems is negative except as stated in HPI Past Medical History Past Medical History: Cancer, Seizure Disorder Additional Past Medical History / Comment(s): eye-paintball injury, seizure disorder as child-grew out of, recent adm to [facility] for chemo for liposarcoma left leg History of Any Multi-Drug Resistant Organisms: None Reported Past Surgical History: No Surgical Hx Reported Additional Past Surgical History / Comment(s): Left leg biopsy Past Anesthesia/Blood Transfusion Reactions: No Reported Reaction Past Psychological History: No Psychological Hx Reported Smoking Status: Former smoker Past Alcohol Use History: Occasional Past Drug Use History: Marijuana - Past Family History Mother Family Medical History: No Reported History Additional Family Medical History / Comment(s): Father: Non-Hodgkin's Lymphoma Father Family Medical History: Cancer, Congestive Heart Failure (CHF), Diabetes Mellitus Additional Family Medical History / Comment(s): Father: Non-Hodgkin's Lymphoma passed 2012 Medications and Allergies Home Medications Medication Instructions Recorded Confirmed Type Cyclobenzaprine [Flexeril] 10 mg PO TID PRN #20 tab 12/16/21 01/16/22 Rx HYDROcodone/APAP 10-325MG [[place] 1 tab PO Q6HR PRN 3 Days #12 tab 01/10/22 01/16/22 Rx 10-325] Allergies Allergy/AdvReac Type Severity Reaction Status Date / Time No Known Allergies Allergy Verified 01/16/22 12:50 Physical Exam Vitals: Vital Signs Temp Pulse Resp BP Pulse Ox 01/16/22 16:00 98.3 F 69 18 123/75 98 01/16/22 11:46 97.6 F 75 18 137/84 97 01/16/22 09:24 97.8 F 79 18 134/80 96 Intake and Output 01/16/22 01/16/22 01/16/22 06:59 14:59 22:59 Other: Weight 98.5 kg - Constitutional General appearance: average body habitus, cooperative, no acute distress - EENT Eyes: anicteric sclerae, EOMI, normal appearance ENT: hearing grossly normal, normal oropharynx - Neck Neck: no lymphadenopathy - Respiratory Respiratory: bilateral: CTA - Cardiovascular Rhythm: regular Heart sounds: normal: S1, S2 Abnormal Heart Sounds: no systolic murmur, no diastolic murmur, no rub, no S3 Gallop, no S4 Gallop, no click, no other leg Peripheral Edema: bilateral: None - Gastrointestinal General gastrointestinal: no absent bowel sounds, no decreased bowel sounds, no distended, no hepatomegaly, no hyperactive bowel sounds, normal bowel sounds, no organomegaly, no rigid, no scaphoid, soft, no splenomegaly, no tenderness, no umbilical hernia, no ventral hernia - Integumentary Integumentary: normal - Neurologic Neurologic: CNII-XII intact - Musculoskeletal Left lateral popliteal area, masses about the size of a lemon, softer, and does move to the posterior aspect of the leg, superior to the popliteal fossa Musculoskeletal: strength equal bilaterally - Psychiatric Psychiatric: A&O x's 3, appropriate affect, intact judgment & insight Results CBC & Chem 7: 01/16/22 12:59 01/16/22 12:59 Labs: Abnormal Lab Results - Last 24 Hours (Table) 01/16/22 01/16/22 Range/Units 12:59 12:59 Hct 38.6 L (39.0-53.0) % ALT 67 H (4-49) U/L Thrombosis Risk Factor Assmnt - DVT/VTE Prophylaxis DVT/VTE Prophylaxis: Pharmacologic Prophylaxis ordered - Choose All That Apply Any of the Below Risk Factors Present?: No Other Risk Factors: Yes Each Risk Factor Represents 2 Points: Malignancy Other congenital or acquired thrombophilia - If yes, enter type in comment: No Thrombosis Risk Factor Assessment Total Risk Factor Score: 2 Thrombosis Risk Factor Assessment Level: Low Risk Assessment and Plan (1) Liposarcoma of left lower extremity Current Visit: Yes Status: Acute Priority: High Code(s): C49.22 - MALIG NEOPLM OF CONN AND SOFT TISS OF LEFT LOW LIMB, INC HIP SNOMED Code(s): 686102877 (2) Anxiety about health Current Visit: Yes Status: Chronic Priority: High Code(s): F41.8 - OTHER SPECIFIED ANXIETY DISORDERS SNOMED Code(s): 494306966 Plan: Admission cycle #2 CIVI AIM for myxoid liposarcoma Home medications reconciled Labs daily Supportive medications ordered Patient utilizes Xanax at at bedtime while inpatient for moderate to severe anxiety Diet as tolerated Activity encouraged, 5 times a day, up in chair for meals Daily weights attests: I have seen and examined patient, performed H&P, developed impression and plan of care. Discussed with dictator. Agree with documentation, dictated as a scribe
[2022-01-16] MEDS: HYDROcodone/APAP 10-325MG 1 EACH TAB PO PRN (21:19)
[2022-01-16] MEDS: SALT AND SODA MOUTHWASH 1,000 ML PO SCH (21:20)
[2022-01-16] MEDS: CYCLOBENZAPRINE 10 MG TAB PO PRN (22:25)
[2022-01-17] MEDS: SALT AND SODA MOUTHWASH 1,000 ML PO SCH ×5 (00:35→21:36)
[2022-01-17] MEDS: SODIUM CHLORIDE 0.9% 1,000 ML IV SCH ×3 (04:44→18:50)
[2022-01-17 05:23] LABS: Appearance,Urine Clear (Clear); Bilirubin,Urine Negative (Negative); Blood,Urine Negative (Negative); Color,Urine Light Yellow; Glucose,Urine (UA) Negative (Negative); Ketones,Urine Trace (Negative); Leukocyte Esterase,Urine Negative (Negative); Nitrite,Urine Negative (Negative); PH, Urine 7.5 (5.0-8.0); Protein,Urine Negative (Negative); Specific Gravity,Urine 1.018 (1.001-1.035); Urobilinogen,Urine <2.0 mg/dL (<2.0)
[2022-01-17] MEDS: ENOXAPARIN 40 MG/0.4 ML SYRINGE SQ SCH (08:28)
[2022-01-17 09:44] LABS: Basophils # (A) 0.02 X 10*3/uL (0.00-0.10); Basophils % (A) 0.1 %; Eosinophils # (A) 0 X 10*3/uL (0.04-0.35); Eosinophils % (A) 0 %; HCT 38.9 % (39.6-50.0); HGB 12.9 g/dL (13.0-17.0); Lymphocytes # (A) 0.95 X 10*3/uL (0.90-5.00); Lymphocytes % (A) 6.7 %; MCH 28.5 pg (27.0-32.0); MCHC 33.2 g/dL (32.0-37.0); MCV 85.9 fL (80.0-97.0); Mean Platelet Volume 9.3 fL (9.5-12.2); Monocytes # (A) 0.42 X 10*3/uL (0.20-1.00); NRBC Per 100 WBC 0 /100 WBCS (0.0-0.0); Neutrophils # (A) 12.63 X 10*3/uL (1.80-7.70); Neutrophils % (A) 89.2 %; Platelet Count 239 X 10*3/uL (140-440); RBC 4.53 X 10*6/uL (4.40-5.60); RDW 14.1 % (11.5-14.5); WBC 14.16 X 10*3/uL (4.50-10.00)
[2022-01-17 10:23] LABS: ALT 77 U/L (10-49); AST 39 U/L (14-35); African American GFR (CKD) 130.5 (60.0-200.0); Albumin 4.4 g/dL (3.8-4.9); Alkaline Phosphatase 80 U/L (41-126); BUN/Creat Ratio 11.78 Ratio (12.00-20.00); Blood Urea Nitrogen 10.6 mg/dL (9.0-27.0); Carbon Dioxide 20.4 mmol/L (20.0-27.5); Chloride 100 mmol/L (96-109); Globulin 2.1 g/dL (1.6-3.3); Glucose 152 mg/dL (70-110); Non-African American GFR(CKD) 112.6 (60.0-200.0); Potassium 4.2 mmol/L (3.5-5.5); Sodium 135 mmol/L (135-145); Total Bilirubin <0.15 mg/dL (0.30-1.20); Total Protein 6.5 g/dL (6.2-8.2)
--- NOTE | 2022-01-17 12:42 | P.PN ---
Subjective Progress Note Date: 01/17/22 Principal diagnosis: CIVI AIM for myxoid liposarcoma In follow-up today patient denies fevers, oral irritation, nausea, shortness of breath, palpitations, abdominal pain or cramping, dysuria, hematuria, diarrhea or constipation, rashes, swelling in the legs, he is tolerating oral intake, he is independently ambulatory. No physical complaints today Objective - Vital Signs Vital signs: Vital Signs Temp 98 F 01/17/22 11:54 Pulse 76 01/17/22 11:54 Resp 20 01/17/22 11:54 BP 148/71 01/17/22 11:54 Pulse Ox 99 01/17/22 11:54 FiO2 Intake & Output 01/16/22 01/17/22 01/17/22 18:59 06:59 18:59 Intake Total 900 240 Output Total 1200 Balance 900 -960 Weight 98.5 kg 102 kg Intake: Intake, IV Titration 900 Amount Sodium Chloride 0.9% 1, 900 000 ml @ 150 mls/hr IV . Q6H40M [facility], [facility]1983 Rx#:[id number] Oral 240 Output: Urine 1200 Other: Voiding Method Toilet Toilet Urinal Urinal - Constitutional General appearance: Present: average body habitus, cooperative, no acute distress - EENT Eyes: Present: anicteric sclerae, EOMI ENT: Present: hearing grossly normal, normal oropharynx - Respiratory Respiratory: bilateral: CTA - Cardiovascular Rhythm: regular Heart sounds: normal: S1, S2 Abnormal Heart Sounds: Absent: systolic murmur, diastolic murmur, rub, S3 Gallop, S4 Gallop, click, other - Peripheral edema foot Peripheral Edema: bilateral: None - Gastrointestinal General gastrointestinal: Present: normal bowel sounds, soft - Integumentary Integumentary: Present: normal, normal turgor - Neurologic Neurologic: Present: CNII-XII intact - Musculoskeletal Musculoskeletal: Present: strength equal bilaterally - Psychiatric Psychiatric: Present: A&O x's 3, appropriate affect, intact judgment & insight - Labs CBC & Chem 7: 01/17/22 06:01 01/17/22 06:01 Labs: Abnormal Lab Results - Last 24 Hours (Table) 01/16/22 01/16/22 01/17/22 Range/Units 12:59 12:59 05:00 WBC (4.50-10.00) X 10*3/uL Hgb (13.0-17.0) g/dL Hct 38.6 L (39.0-53.0) % MPV (9.5-12.2) fL Immature Gran # (0.00-0.04) X 10*3/uL Neutrophils # (1.80-7.70) X 10*3/uL Eosinophils # (0.04-0.35) X 10*3/uL BUN/Creatinine Ratio (12.00-20.00) Ratio Glucose (70-110) mg/dL Total Bilirubin (0.30-1.20) mg/dL AST (14-35) U/L ALT 67 H (4-49) U/L Urine Ketones Trace H (Negative) 01/17/22 01/17/22 Range/Units 06:01 06:01 WBC 14.16 H (4.50-10.00) X 10*3/uL Hgb 12.9 L (13.0-17.0) g/dL Hct 38.9 L (39.0-53.0) % MPV 9.3 L (9.5-12.2) fL Immature Gran # 0.14 H (0.00-0.04) X 10*3/uL Neutrophils # 12.63 H (1.80-7.70) X 10*3/uL Eosinophils # 0 L (0.04-0.35) X 10*3/uL BUN/Creatinine Ratio 11.78 L (12.00-20.00) Ratio Glucose 152 H (70-110) mg/dL Total Bilirubin <0.15 L (0.30-1.20) mg/dL AST 39 H (14-35) U/L ALT 77 H (4-49) U/L Urine Ketones (Negative) Assessment and Plan (1) Liposarcoma of left lower extremity Current Visit: Yes Status: Acute Priority: High Code(s): C49.22 - MALIG NEOPLM OF CONN AND SOFT TISS OF LEFT LOW LIMB, INC HIP SNOMED Code(s): 819559101 (2) Anxiety about health Current Visit: Yes Status: Chronic Priority: High Code(s): F41.8 - OTHER SPECIFIED ANXIETY DISORDERS SNOMED Code(s): 491905487 Plan: Admission cycle #2 CIVI AIM for myxoid liposarcoma Home medications reconciled Labs daily Supportive medications ordered Patient utilizes Xanax at at bedtime while inpatient for moderate to severe anxiety Diet as tolerated Activity encouraged, 5 times a day, up in chair for meals Daily weights No changes in the plan at this time. Continue treatment as ordered. Daily follow-up.
[2022-01-17] MEDS: FAMOTIDINE 20 MG/2 ML VIAL IV SCH (15:21)
[2022-01-17] MEDS: DEXAMETHASONE SOD PHOSPHATE 10 MG/ML 1 ML VIAL IV SCH (15:21)
[2022-01-17] MEDS: SODIUM CHLORIDE 0.9% IV SCH ×4 (15:24→21:12)
[2022-01-17] MEDS: MESNA IV SCH ×2 (15:24→21:12)
[2022-01-17] MEDS: ONDANSETRON 16 MG in SODIUM CHLORIDE 0.9% 50 ML IVPB SCH (15:52)
[2022-01-17] MEDS: DOXORUBICIN HCL IV SCH (16:23)
[2022-01-17] MEDS: IFOSFAMIDE IV SCH (16:24)
[2022-01-17] MEDS: HYDROcodone/APAP 10-325MG 1 EACH TAB PO PRN ×2 (16:33→22:09)
[2022-01-17] MEDS: ALPRAZolam 1 MG TAB PO PRN (21:21)
[2022-01-17] MEDS: CYCLOBENZAPRINE 10 MG TAB PO PRN (21:21)
[2022-01-18] MEDS: SODIUM CHLORIDE 0.9% IV SCH ×5 (00:37→21:39)
[2022-01-18] MEDS: MESNA IV SCH ×3 (00:37→21:39)
[2022-01-18] MEDS: SALT AND SODA MOUTHWASH 1,000 ML PO SCH ×5 (00:46→20:27)
[2022-01-18] MEDS: SODIUM CHLORIDE 0.9% 1,000 ML IV SCH ×4 (00:46→17:33)
[2022-01-18] MEDS: ENOXAPARIN 40 MG/0.4 ML SYRINGE SQ SCH ×2 (08:13→16:48)
[2022-01-18 09:21] LABS: Basophils # (A) 0.02 X 10*3/uL (0.00-0.10); Basophils % (A) 0.1 %; Eosinophils # (A) 0.01 X 10*3/uL (0.04-0.35); Eosinophils % (A) 0.1 %; HCT 37.1 % (39.6-50.0); HGB 12.2 g/dL (13.0-17.0); Immature Grans, Automated 0.7 %; Lymphocytes # (A) 1.25 X 10*3/uL (0.90-5.00); Lymphocytes % (A) 8.7 %; MCH 28.8 pg (27.0-32.0); MCHC 32.9 g/dL (32.0-37.0); MCV 87.7 fL (80.0-97.0); Mean Platelet Volume 9.3 fL (9.5-12.2); Monocytes # (A) 1.43 X 10*3/uL (0.20-1.00); Monocytes % (A) 9.9 %; NRBC Per 100 WBC 0 /100 WBCS (0.0-0.0); Neutrophils # (A) 11.57 X 10*3/uL (1.80-7.70); Neutrophils % (A) 80.5 %; Platelet Count 234 X 10*3/uL (140-440); RBC 4.23 X 10*6/uL (4.40-5.60); RDW 14.6 % (11.5-14.5); WBC 14.38 X 10*3/uL (4.50-10.00)
[2022-01-18 09:25] LABS: Albumin 4.2 g/dL (3.8-4.9); Albumin/Globulin Ratio 2.33 (1.60-3.17); Anion Gap 10.4 mmol/L (10.00-18.00); BUN/Creat Ratio 11.63 Ratio (12.00-20.00); Blood Urea Nitrogen 9.3 mg/dL (9.0-27.0); Calcium 8.9 mg/dL (8.7-10.3); Carbon Dioxide 26.6 mmol/L (20.0-27.5); Globulin 1.8 g/dL (1.6-3.3); Non-African American GFR(CKD) 118.2 (60.0-200.0); Potassium 4.4 mmol/L (3.5-5.5); Total Bilirubin 0.2 mg/dL (0.30-1.20)
[2022-01-18 10:23] LABS: Appearance,Urine Clear (Clear); Bilirubin,Urine Negative (Negative); Blood,Urine Negative (Negative); Color,Urine Yellow; Glucose,Urine (UA) Negative (Negative); Ketones,Urine 1+ (Negative); Leukocyte Esterase,Urine Negative (Negative); Nitrite,Urine Negative (Negative); PH, Urine 6.5 (5.0-8.0); Protein,Urine Negative (Negative); Specific Gravity,Urine 1.017 (1.001-1.035); Urobilinogen,Urine <2.0 mg/dL (<2.0)
[2022-01-18] MEDS: CYCLOBENZAPRINE 10 MG TAB PO PRN ×2 (11:51→22:25)
[2022-01-18] MEDS: HYDROcodone/APAP 10-325MG 1 EACH TAB PO PRN ×2 (11:51→20:37)
[2022-01-18] MEDS: DEXAMETHASONE SOD PHOSPHATE 10 MG/ML 1 ML VIAL IV SCH (16:48)
[2022-01-18] MEDS: FAMOTIDINE 20 MG/2 ML VIAL IV SCH (16:48)
[2022-01-18] MEDS: ONDANSETRON 16 MG in SODIUM CHLORIDE 0.9% 50 ML IVPB SCH (16:48)
[2022-01-18] MEDS: DOXORUBICIN HCL IV SCH (17:30)
[2022-01-18] MEDS: IFOSFAMIDE IV SCH (17:31)
--- NOTE | 2022-01-18 18:29 | P.PN ---
Subjective Progress Note Date: 01/18/22 Principal diagnosis: CIVI AIM for myxoid liposarcoma In follow-up today patient denies fevers, oral irritation, nausea, shortness of breath, palpitations, abdominal pain or cramping, dysuria, hematuria, diarrhea or constipation, rashes, swelling in the legs. He admits to now walking around much Objective - Vital Signs Vital signs: Vital Signs Temp 98.5 F 01/18/22 17:20 Pulse 75 01/18/22 17:20 Resp 16 01/18/22 17:20 BP 122/62 01/18/22 17:20 Pulse Ox 97 01/18/22 17:20 FiO2 Intake & Output 01/17/22 01/18/22 01/18/22 18:59 06:59 18:59 Intake Total 1900 Balance 1900 Weight 101.5 kg Intake: Intake, IV Titration 1900 Amount [place] 1,100 mg In Sodium 100 Chloride 0.9% 50 ml @ 244 mls/hr IV TID@1230,1700, 2100 [facility] Rx#:[id number] Sodium Chloride 0.9% 1, 1800 000 ml @ 150 mls/hr IV . Q6H40M [facility] Rx#:[id number] Other: Voiding Method Toilet Toilet Toilet Urinal Urinal Urinal # Voids 4 - Constitutional General appearance: Present: average body habitus, cooperative, no acute distress - EENT Eyes: Present: anicteric sclerae, EOMI ENT: Present: hearing grossly normal, normal oropharynx - Respiratory Respiratory: bilateral: CTA - Cardiovascular Rhythm: regular Heart sounds: normal: S1, S2 Abnormal Heart Sounds: Absent: systolic murmur, diastolic murmur, rub, S3 Gallop, S4 Gallop, click, other - Peripheral edema leg Peripheral Edema: bilateral: None - Gastrointestinal General gastrointestinal: Present: normal bowel sounds, soft - Integumentary Integumentary: Present: normal - Neurologic Neurologic: Present: CNII-XII intact - Musculoskeletal Musculoskeletal: Present: strength equal bilaterally - Psychiatric Psychiatric: Present: A&O x's 3, appropriate affect, intact judgment & insight - Labs CBC & Chem 7: 01/18/22 05:36 01/18/22 05:36 Labs: Abnormal Lab Results - Last 24 Hours (Table) 01/18/22 01/18/22 01/18/22 Range/Units 05:36 05:36 09:35 WBC 14.38 H (4.50-10.00) X 10*3/uL RBC 4.23 L (4.40-5.60) X 10*6/uL Hgb 12.2 L (13.0-17.0) g/dL Hct 37.1 L (39.6-50.0) % RDW 14.6 H (11.5-14.5) % MPV 9.3 L (9.5-12.2) fL Immature Gran # 0.10 H (0.00-0.04) X 10*3/uL Neutrophils # 11.57 H (1.80-7.70) X 10*3/uL Monocytes # 1.43 H (0.20-1.00) X 10*3/uL Eosinophils # 0.01 L (0.04-0.35) X 10*3/uL BUN/Creatinine Ratio 11.63 L (12.00-20.00) Ratio Total Bilirubin 0.20 L (0.30-1.20) mg/dL ALT 70 H (10-49) U/L Total Protein 6.0 L (6.2-8.2) g/dL Urine Ketones 1+ H (Negative) Assessment and Plan (1) Liposarcoma of left lower extremity Current Visit: Yes Status: Acute Priority: High Code(s): C49.22 - MALIG NEOPLM OF CONN AND SOFT TISS OF LEFT LOW LIMB, INC HIP SNOMED Code(s): 957728698 (2) Anxiety about health Current Visit: Yes Status: Chronic Priority: High Code(s): F41.8 - OTHER SPECIFIED ANXIETY DISORDERS SNOMED Code(s): 233788143 Plan: Admission cycle #2 CIVI AIM for myxoid liposarcoma Labs daily Supportive medications ordered Patient utilizes Xanax at at bedtime while inpatient for moderate to severe anxiety Diet as tolerated Activity encouraged, 5 times a day, up in chair for meals Daily weights No changes in the plan at this time. Continue treatment as ordered. Daily follow-up continues. Treatment should complete 01/20 around 1800 Home meds refiled-all sent to [facility] F/U lab draw appt in [place] plan
[2022-01-18] MEDS: ALPRAZolam 1 MG TAB PO PRN (22:25)
[2022-01-19] MEDS: SODIUM CHLORIDE 0.9% 1,000 ML IV SCH ×4 (00:37→19:51)
[2022-01-19] MEDS: SALT AND SODA MOUTHWASH 1,000 ML PO SCH ×5 (00:38→19:51)
[2022-01-19] MEDS: MESNA IV SCH ×3 (02:10→21:42)
[2022-01-19] MEDS: SODIUM CHLORIDE 0.9% IV SCH ×4 (02:10→21:42)
[2022-01-19 04:29] LABS: Appearance,Urine Clear (Clear); Bilirubin,Urine Negative (Negative); Blood,Urine Negative (Negative); Color,Urine Light Yellow; Glucose,Urine (UA) Negative (Negative); Ketones,Urine 3+ (Negative); Leukocyte Esterase,Urine Negative (Negative); Nitrite,Urine Negative (Negative); Protein,Urine Negative (Negative); Specific Gravity,Urine 1.015 (1.001-1.035); Urobilinogen,Urine <2.0 mg/dL (<2.0)
[2022-01-19 08:48] LABS: Basophils # (A) 0.02 X 10*3/uL (0.00-0.10); Basophils % (A) 0.2 %; Eosinophils # (A) 0.01 X 10*3/uL (0.04-0.35); Eosinophils % (A) 0.1 %; HCT 35.1 % (39.6-50.0); HGB 11.5 g/dL (13.0-17.0); Immature Grans, Automated 0.4 %; Lymphocytes # (A) 1.38 X 10*3/uL (0.90-5.00); Lymphocytes % (A) 14.2 %; MCH 28.3 pg (27.0-32.0); MCHC 32.8 g/dL (32.0-37.0); MCV 86.5 fL (80.0-97.0); Mean Platelet Volume 9.2 fL (9.5-12.2); Monocytes # (A) 0.91 X 10*3/uL (0.20-1.00); Monocytes % (A) 9.3 %; NRBC Per 100 WBC 0 /100 WBCS (0.0-0.0); Neutrophils # (A) 7.39 X 10*3/uL (1.80-7.70); Neutrophils % (A) 75.8 %; Platelet Count 210 X 10*3/uL (140-440); RBC 4.06 X 10*6/uL (4.40-5.60); RDW 14.2 % (11.5-14.5); WBC 9.75 X 10*3/uL (4.50-10.00)
[2022-01-19] MEDS: ENOXAPARIN 40 MG/0.4 ML SYRINGE SQ SCH (08:52)
[2022-01-19 10:08] LABS: African American GFR (CKD) 136.3 (60.0-200.0); Albumin 3.9 g/dL (3.8-4.9); Albumin/Globulin Ratio 2.16 (1.60-3.17); Anion Gap 9.3 mmol/L (10.00-18.00); BUN/Creat Ratio 15.06 Ratio (12.00-20.00); Blood Urea Nitrogen 12.2 mg/dL (9.0-27.0); Calcium 8.7 mg/dL (8.7-10.3); Carbon Dioxide 24.8 mmol/L (20.0-27.5); Globulin 1.8 g/dL (1.6-3.3); Non-African American GFR(CKD) 117.6 (60.0-200.0); Total Bilirubin 0.4 mg/dL (0.30-1.20); Total Protein 5.8 g/dL (6.2-8.2)
[2022-01-19] MEDS: HYDROcodone/APAP 10-325MG 1 EACH TAB PO PRN (16:54)
[2022-01-19] MEDS: CYCLOBENZAPRINE 10 MG TAB PO PRN (16:55)
[2022-01-19] MEDS: DEXAMETHASONE SOD PHOSPHATE 10 MG/ML 1 ML VIAL IV SCH (16:56)
[2022-01-19] MEDS: ONDANSETRON 16 MG in SODIUM CHLORIDE 0.9% 50 ML IVPB SCH (16:56)
[2022-01-19] MEDS: FAMOTIDINE 20 MG/2 ML VIAL IV SCH (16:56)
[2022-01-19] MEDS: IFOSFAMIDE IV SCH (17:40)
--- NOTE | 2022-01-19 17:53 | P.PN ---
Subjective Progress Note Date: 01/19/22 Principal diagnosis: Timed Chemo He should complete chemo this evening into early am, patient doesnt eat well while in hospital and is mentally struggling while here. His blood counts have been ok, he will be discharge after chemo. Objective - Vital Signs Vital signs: Vital Signs Temp 97.9 F 01/19/22 07:53 Pulse 63 01/19/22 07:53 Resp 16 01/19/22 07:53 BP 142/77 01/19/22 07:53 Pulse Ox 99 01/19/22 07:53 FiO2 Intake & Output 01/18/22 01/19/22 01/19/22 18:59 06:59 18:59 Output Total 2 Balance -2 Weight 101.559 kg Output: Urine 2 Other: Voiding Method Toilet Toilet Urinal Urinal # Voids 3 - Exam - Constitutional General appearance: Present: average body habitus, cooperative, no acute distress - EENT Eyes: Present: anicteric sclerae, EOMI ENT: Present: hearing grossly normal, normal oropharynx - Respiratory Respiratory: bilateral: CTA - Cardiovascular Rhythm: regular Heart sounds: normal: S1, S2 Abnormal Heart Sounds: Absent: systolic murmur, diastolic murmur, rub, S3 Gallop, S4 Gallop, click, other - Peripheral edema leg Peripheral Edema: bilateral: None - Gastrointestinal General gastrointestinal: Present: normal bowel sounds, soft - Integumentary Integumentary: Present: normal - Neurologic Neurologic: Present: CNII-XII intact - Musculoskeletal Musculoskeletal: Present: strength equal bilaterally - Psychiatric Psychiatric: Present: A&O x's 3, appropriate affect, intact judgment & insight - Labs CBC & Chem 7: 01/19/22 05:26 01/19/22 05:25 Labs: Abnormal Lab Results - Last 24 Hours (Table) 01/18/22 01/19/22 01/19/22 Range/Units 09:35 04:15 05:26 RBC 4.06 L (4.40-5.60) X 10*6/uL Hgb 11.5 L (13.0-17.0) g/dL Hct 35.1 L (39.6-50.0) % MPV 9.2 L (9.5-12.2) fL Eosinophils # 0.01 L (0.04-0.35) X 10*3/uL Urine Ketones 1+ H 3+ H (Negative) Assessment and Plan Plan: Assessment and Plan (1) Liposarcoma of left lower extremity Current Visit: Yes Status: Acute Priority: High Code(s): C49.22 - MALIG NEOPLM OF CONN AND SOFT TISS OF LEFT LOW LIMB, INC HIP SNOMED Code(s): 18 [id number] (2) Anxiety about health Current Visit: Yes Status: Chronic Priority: High Code(s): F41.8 - OTHER SPECIFIED ANXIETY DISORDERS SNOMED Code(s): 831558880 Plan: Admission cycle #2 CIVI AIM for myxoid liposarcoma Labs daily Supportive medications ordered and scripts sent for discharge which is anticipated tomorrow. Patient may continue to utilizes Xanax at at bedtime while inpatient for moderate to severe anxiety Diet as tolerated Activity encouraged, 5 times a day, up in chair for meals and walking Daily weights Treatment should complete 01/20 around 1800 Home meds refiled-all sent to [facility] F/U lab draw appt in [place] plan
[2022-01-19 20:31] VITALS: RESP 16
[2022-01-19] MEDS ORDERED: SENNOSIDES-DOCUSATE SODIUM 1 EACH TAB PO SCH (21:00)
[2022-01-19 23:23] LABS: Magnesium 2.1 mg/dL (1.5-2.4)
[2022-01-20] MEDS: MESNA IV SCH (01:40)
[2022-01-20] MEDS: SODIUM CHLORIDE 0.9% IV SCH (01:40)
[2022-01-20] MEDS: SALT AND SODA MOUTHWASH 1,000 ML PO SCH (01:47)
[2022-01-20 02:11] VITALS: BP 151/76; PULSE 69; TEMP 97.7
--- NOTE | 2022-01-22 16:58 | P.DS ---
Providers Date of admission: 01/16/22 08:59 Expected date of discharge: 01/20/22 Attending physician: Junior Walden MD Primary care physician: [facility] Course: Chemotherapy with AIM cycle 2 Assessment: Alert and oriented Irritated being in hospital Patient Condition at Discharge: Fair Plan - Discharge Summary Discharge Rx Participant: Yes New Discharge Prescriptions: New Ondansetron [Zofran] 4 mg PO Q4HR PRN #45 tab PRN Reason: Nausea Continue Cyclobenzaprine [Flexeril] 10 mg PO TID PRN #20 tab PRN Reason: Spasms HYDROcodone/APAP 10-325MG [[place] 10-325] 1 tab PO Q6HR PRN 3 Days #12 tab PRN Reason: Pain Discharge Medication List Cyclobenzaprine [Flexeril] 10 mg PO TID PRN #20 tab 01/18/22 [Rx] HYDROcodone/APAP 10-325MG [[place] 10-325] 1 tab PO Q6HR PRN 3 Days #12 tab 01/18/22 [Rx] Ondansetron [Zofran] 4 mg PO Q4HR PRN #45 tab 01/18/22 [Rx] Follow up Appointment(s)/Referral(s): Junior Walden MD [STAFF PHYSICIAN] - 01/26/22 10:30 am Patient Instructions/Handouts: Hydrocodone/Acetaminophen (By mouth), Cyclobenzaprine (By mouth), Ondansetron (By mouth) Discharge Disposition: HOME SELF-CARE
== END 2022-01-20 02:14 | disposition home or self-care (01) | DRG 847 ==
LOC: 5NMEDONC 08:59
PROVIDERS: ADMIT Internal Medicine; ATTEND Internal Medicine
DX: Z51.11 Encounter for antineoplastic chemotherapy (principal); C49.22 Malignant neoplasm of connective and soft tissue of left lower limb, including hip; Z28.310 Unvaccinated for COVID-19; F06.4 Anxiety disorder due to known physiological condition; Z79.899 Other long term (current) drug therapy; Z87.891 Personal history of nicotine dependence; Z80.7 Family history of other malignant neoplasms of lymphoid, hematopoietic and related tissues
CPT/HCPCS: 80053; 81003; 82306; 82607; 82746; 83735; 85025

== ENCOUNTER 2022-02-06 09:12 | Inpatient (IN) | payer OTHER ==
[2022-02-06 11:10] LABS: ALT 109 U/L (4-49); AST 102 U/L (17-59); African American GFR (CKD) >90 (>60 ml/min/1.73 sqM); Albumin 4.2 g/dL (3.5-5.0); Albumin/Globulin Ratio 1.6; Alkaline Phosphatase 85 U/L (38-126); Anion Gap 8 mmol/L; Blood Urea Nitrogen 14 mg/dL (9-20); Calcium 8.6 mg/dL (8.4-10.2); Carbon Dioxide 27 mmol/L (22-30); Chloride 104 mmol/L (98-107); Globulin 2.6 g/dL; Glucose 85 mg/dL (74-99); Non-African American GFR(CKD) >90 (>60 ml/min/1.73 sqM); Potassium 4.7 mmol/L (3.5-5.1); Sodium 139 mmol/L (137-145); Total Bilirubin 0.2 mg/dL (0.2-1.3); Total Protein 6.8 g/dL (6.3-8.2)
[2022-02-06 11:11] LABS: HCT 38.3 % (39.0-53.0); HGB 12.7 gm/dL (13.0-17.5); MCH 29.5 pg (25.0-35.0); MCHC 33.2 g/dL (31.0-37.0); MCV 88.8 fL (80.0-100.0); Mean Platelet Volume 7.6; RBC 4.31 m/uL (4.30-5.90); RDW 14.8 % (11.5-15.5); WBC 9.1 k/uL (3.8-10.6)
[2022-02-06 11:17] LABS: Platelet Count 622 k/uL (150-450)
[2022-02-06] MEDS ORDERED: HYDROcodone/APAP 10-325MG 1 EACH TAB PO PRN (11:44)
[2022-02-06] MEDS: SODIUM CHLORIDE 0.9% 1,000 ML IV SCH ×3 (12:03→19:38)
[2022-02-06] MEDS: DEXAMETHASONE SOD PHOSPHATE 10 MG/ML 1 ML VIAL IV SCH (12:03)
[2022-02-06 12:04] LABS: Band Neutrophils % 2 %; Basophils # (M) 0.18 k/uL (0-0.2); Eosinophils # (M) 0.09 k/uL (0-0.7); Lymphocytes # (M) 2.64 k/uL (1.0-4.8); Metamyelocytes # (M) 0.27 k/uL (0); Metamyelocytes % 3 %; Monocytes # (M) 0.91 k/uL (0-1.0); Myelocytes # (M) 0.18 k/uL (0); Myelocytes % 2 %; Neutrophils % (M) 54 %; Nucleated Red Blood Cells 0 /100 WBC (0-0); Total Cells Counted 200
[2022-02-06] MEDS: FAMOTIDINE 20 MG/2 ML VIAL IV SCH (12:04)
[2022-02-06] MEDS: ONDANSETRON 16 MG in SODIUM CHLORIDE 0.9% 50 ML IVPB SCH (12:04)
[2022-02-06] MEDS: MESNA IV SCH ×3 (12:39→20:55)
[2022-02-06] MEDS: SODIUM CHLORIDE 0.9% IV SCH ×5 (12:39→20:55)
[2022-02-06] MEDS: DOXORUBICIN HCL IV SCH (12:59)
[2022-02-06] MEDS: IFOSFAMIDE IV SCH (13:02)
[2022-02-06] MEDS ORDERED: MAGNESIUM HYDROXIDE 2,400 MG/10 ML CUP PO PRN (13:07)
[2022-02-06] MEDS ORDERED: LOPERAMIDE 2 MG CAP PO PRN (13:07)
[2022-02-06] MEDS ORDERED: ACETAMINOPHEN TAB 325 MG TAB PO PRN (13:07)
[2022-02-06] MEDS ORDERED: APREPITANT 130 MG/18 ML VIAL IV ONE (13:30)
[2022-02-06] MEDS: SALT AND SODA MOUTHWASH 1,000 ML PO SCH ×2 (16:15→19:38)
--- NOTE | 2022-02-06 20:15 | P.HPIM ---
History of Present Illness H&P Date: 02/06/22 Chief Complaint: cycle #3, AIM CIVI, liposarcoma Mr. Katz is a 31 year old male who is admitted for cycle #3 AIM for for myxoid liposarcoma of the left leg. His 2nd cycle due 01/09/22 was delayed 1 week 2/2 defective port, he went home, had PICC place and treatment commenced 01/13/22. He still has defective port in place. He comes in for treatment feeling good. The swelling and pain he had with movement is now gone! Denies fever, oral irritation, cough, SOB, GI complaints, acute changes in bowel or bladder habits. He feels well, recently went to the gym, has been walking. Malignancy HX: He first noted swelling in the left thigh about 6-7 months ago following a fall when he rolled his right ankle, swelling persisted and progressed so, he went for evaluation. MRI of the left knee 09/08/21 noted heterogenous lesion on lateral aspect of left femur measuring 8 x 7.1 cm with popliteal vessels deviated medially and mass effect on muscles of the left femur. MRI of left knee on 10/07/21 noted anterior large complex mass measuring 8 x 4 cm adjacent to posterior distal femur. No evidence of bone destruction or ligament tear. Core needle biopsy 10/11/21 reveled myxoid liposarcoma without necrosis, focus of high grade cells < 5%. CT CAP 11/08/21 noted no evidence of metastasis or adenopathy. He was seen by Dr. Lane of Medical Oncology and Dr. Cross of Orthopedic Oncology with plan for neoadjuvant AIM x 3 cycles followed by neoadjuvant radiation therapy. He did well with cycle #1 and ##2, mild SE and no severe hematological toxicities. Review of Systems 10 point ROS is neg except as stated in HPI Past Medical History Past Medical History: Cancer, Seizure Disorder Additional Past Medical History / Comment(s): L lower extremity myxoid liposarcoma/receiving chemotherapy, childhood seizures/outgrew, eyeball injury d/t paintball. History of Any Multi-Drug Resistant Organisms: None Reported Past Surgical History: No Surgical Hx Reported Additional Past Surgical History / Comment(s): Left leg biopsy, port and picc line Past Anesthesia/Blood Transfusion Reactions: No Reported Reaction Smoking Status: Former smoker - Past Family History Mother Family Medical History: No Reported History Additional Family Medical History / Comment(s): Father: Non-Hodgkin's Lymphoma Father Family Medical History: Cancer, Congestive Heart Failure (CHF), Diabetes Mellitus Additional Family Medical History / Comment(s): Father: Non-Hodgkin's Lymphoma passed 2012 Medications and Allergies Home Medications Medication Instructions Recorded Confirmed Type Cyclobenzaprine [Flexeril] 10 mg PO TID PRN #20 tab 01/18/22 02/06/22 Rx HYDROcodone/APAP 10-325MG [[place] 1 tab PO Q6HR PRN 3 Days #12 tab 01/18/22 02/06/22 Rx 10-325] Ondansetron [Zofran] 4 mg PO Q4HR PRN #45 tab 01/18/22 02/06/22 Rx Allergies Allergy/AdvReac Type Severity Reaction Status Date / Time No Known Allergies Allergy Verified 02/06/22 13:19 Physical Exam Vitals: Vital Signs Temp Pulse Resp BP Pulse Ox 02/06/22 11:37 98.0 F 87 18 140/88 98 02/06/22 09:37 97.8 F 90 18 159/99 98 Intake and Output 02/05/22 02/06/22 02/06/22 22:59 06:59 14:59 Other: Weight 101.9 kg - Constitutional General appearance: average body habitus, cooperative, no acute distress - EENT Eyes: anicteric sclerae, EOMI ENT: hearing grossly normal, normal oropharynx - Neck Neck: no lymphadenopathy - Respiratory Respiratory: bilateral: CTA - Cardiovascular Rhythm: regular Heart sounds: normal: S1, S2 Abnormal Heart Sounds: no systolic murmur, no diastolic murmur, no rub, no S3 Gallop, no S4 Gallop, no click, no other leg Peripheral Edema: bilateral: None - Gastrointestinal General gastrointestinal: no absent bowel sounds, no decreased bowel sounds, no distended, no hepatomegaly, no hyperactive bowel sounds, normal bowel sounds, no organomegaly, no rigid, no scaphoid, soft, no splenomegaly, no tenderness, no umbilical hernia, no ventral hernia - Integumentary Integumentary: normal - Neurologic Neurologic: CNII-XII intact - Musculoskeletal left posteriorlateral mass no longer palpable Musculoskeletal: strength equal bilaterally - Psychiatric Psychiatric: A&O x's 3, appropriate affect, intact judgment & insight Results CBC & Chem 7: 02/06/22 10:05 02/06/22 10:05 Labs: Abnormal Lab Results - Last 24 Hours (Table) 02/06/22 02/06/22 Range/Units 10:05 10:05 Hgb 12.7 L (13.0-17.5) gm/dL Hct 38.3 L (39.0-53.0) % Plt Count 622 H D (150-450) k/uL Metamyelocytes # (Man) 0.27 H (0) k/uL Myelocytes # (Manual) 0.18 H (0) k/uL AST 102 H (17-59) U/L ALT 109 H (4-49) U/L Thrombosis Risk Factor Assmnt - DVT/VTE Prophylaxis DVT/VTE Prophylaxis: Pharmacologic Prophylaxis ordered - Choose All That Apply Any of the Below Risk Factors Present?: Yes Each Factor Represents 1 point: Obesity (BMI >25) Other Risk Factors: Yes Each Risk Factor Represents 2 Points: Malignancy Other congenital or acquired thrombophilia - If yes, enter type in comment: No Thrombosis Risk Factor Assessment Total Risk Factor Score: 3 Thrombosis Risk Factor Assessment Level: Moderate Risk Assessment and Plan (1) Liposarcoma of left lower extremity Current Visit: Yes Status: Acute Priority: High Code(s): C49.22 - MALIG NEOPLM OF CONN AND SOFT TISS OF LEFT LOW LIMB, INC HIP SNOMED Code(s): 810728190 (2) Anxiety about health Current Visit: Yes Status: Chronic Priority: High Code(s): F41.8 - OTHER SPECIFIED ANXIETY DISORDERS SNOMED Code(s): 108848809 Plan: Admit for cycle #3 neoadjuvant AIM for Lt posteriolateral mixoid liposarcoma. Chemo orders sent to unit Home meds reconciled Xanax for HS 2/2 anxiety Labs daily Daily wt Regular diet Activity 4x/d Supportive meds for common side effects Oral care, salt and soda GI/DVT prophylaxis Follow up daily Hope to have treatment completed Sun
[2022-02-06] MEDS: ALPRAZolam 1 MG TAB PO PRN (21:24)
[2022-02-06] MEDS: CYCLOBENZAPRINE 10 MG TAB PO PRN (21:24)
[2022-02-07] MEDS: SALT AND SODA MOUTHWASH 1,000 ML PO SCH ×5 (00:35→22:23)
[2022-02-07] MEDS: SODIUM CHLORIDE 0.9% 1,000 ML IV SCH ×4 (02:16→22:19)
[2022-02-07 09:06] LABS: HCT 36.3 % (39.6-50.0); HGB 11.7 g/dL (13.0-17.0); MCH 28.5 pg (27.0-32.0); MCHC 32.2 g/dL (32.0-37.0); MCV 88.3 fL (80.0-97.0); Mean Platelet Volume 8.7 fL (9.5-12.2); NRBC Per 100 WBC 0 /100 WBCS (0.0-0.0); Platelet Count 470 X 10*3/uL (140-440); RBC 4.11 X 10*6/uL (4.40-5.60); RDW 14.2 % (11.5-14.5); WBC 19.19 X 10*3/uL (4.50-10.00)
[2022-02-07 09:27] LABS: ALT 92 U/L (10-49); AST 62 U/L (14-35); African American GFR (CKD) 144.7 (60.0-200.0); Albumin/Globulin Ratio 1.82 (1.60-3.17); Alkaline Phosphatase 86 U/L (41-126); BUN/Creat Ratio 13.57 Ratio (12.00-20.00); Blood Urea Nitrogen 9.5 mg/dL (9.0-27.0); Calcium 9.3 mg/dL (8.7-10.3); Carbon Dioxide 24.2 mmol/L (20.0-27.5); Chloride 102 mmol/L (96-109); Globulin 2.2 g/dL (1.6-3.3); Glucose 114 mg/dL (70-110); Non-African American GFR(CKD) 124.9 (60.0-200.0); Potassium 4.6 mmol/L (3.5-5.5); Sodium 137 mmol/L (135-145); Total Bilirubin <0.15 mg/dL (0.30-1.20); Total Protein 6.2 g/dL (6.2-8.2)
[2022-02-07 10:15] LABS: Basophils # (M) 0 X 10*3/uL (0.00-0.10); Eosinophils # (M) 0 X 10*3/uL (0.04-0.35); Lymphocytes # (M) 0.77 X 10*3/uL (0.90-5.00); Monocytes # (M) 0.96 X 10*3/uL (0.20-1.00); Myelocytes % 3 % (0-0); Neutrophils # (M) 16.89 X 10*3/uL (2.00-8.90); Neutrophils % (M) 88 %
[2022-02-07] MEDS: ONDANSETRON 16 MG in SODIUM CHLORIDE 0.9% 50 ML IVPB SCH (14:07)
[2022-02-07] MEDS: FAMOTIDINE 20 MG/2 ML VIAL IV SCH (14:07)
[2022-02-07] MEDS: DEXAMETHASONE SOD PHOSPHATE 10 MG/ML 1 ML VIAL IV SCH (14:07)
[2022-02-07] MEDS: MESNA IV SCH ×3 (14:32→22:19)
[2022-02-07] MEDS: SODIUM CHLORIDE 0.9% IV SCH ×5 (14:32→22:19)
[2022-02-07] MEDS: IFOSFAMIDE IV SCH (14:53)
[2022-02-07] MEDS: DOXORUBICIN HCL IV SCH (14:54)
--- NOTE | 2022-02-07 18:37 | P.PN ---
Subjective Progress Note Date: 02/07/22 Principal diagnosis: Continuous IV infusion, AIM, myxoid liposarcoma In follow-up today patient Continues on treatment, no acute side effects to report,denies fevers, oral irritation, sore throat, shortness of breath, cough, palpitations, nausea, vomiting, abdominal pain, indigestion, heartburn, acute changes in bowel or bladder habits, swelling in the legs. He is not experie ncing any pain. He is ambulatory. Objective - Vital Signs Vital signs: Vital Signs Temp 97.8 F 02/07/22 16:00 Pulse 114 H 02/07/22 16:00 Resp 18 02/07/22 16:00 BP 130/83 02/07/22 16:00 Pulse Ox 98 02/07/22 16:00 FiO2 Intake & Output 02/06/22 02/07/22 02/07/22 18:59 06:59 18:59 Intake Total 860 Balance 860 Weight 101.9 kg 117 kg 102.7 kg Intake: Oral 860 Other: # Voids 3 2 1 - Constitutional General appearance: Present: average body habitus, cooperative, no acute distress - EENT Eyes: Present: anicteric sclerae, EOMI ENT: Present: hearing grossly normal, normal oropharynx - Respiratory Respiratory: bilateral: CTA - Cardiovascular Rhythm: regular Heart sounds: normal: S1, S2 Abnormal Heart Sounds: Absent: systolic murmur, diastolic murmur, rub, S3 Gallop, S4 Gallop, click, other - Peripheral edema leg Peripheral Edema: bilateral: None - Gastrointestinal General gastrointestinal: Present: normal bowel sounds, soft - Integumentary Integumentary: Present: normal - Neurologic Neurologic: Present: CNII-XII intact - Musculoskeletal Musculoskeletal: Present: strength equal bilaterally - Psychiatric Psychiatric: Present: A&O x's 3, appropriate affect, intact judgment & insight - Labs CBC & Chem 7: 02/07/22 05:53 02/07/22 05:53 Labs: Abnormal Lab Results - Last 24 Hours (Table) 02/07/22 02/07/22 Range/Units 05:53 05:53 WBC 19.19 H (4.50-10.00) X 10*3/uL RBC 4.11 L (4.40-5.60) X 10*6/uL Hgb 11.7 L (13.0-17.0) g/dL Hct 36.3 L (39.6-50.0) % Plt Count 470 H (140-440) X 10*3/uL Plt Count Comment INCREASED A MPV 8.7 L (9.5-12.2) fL Myelocytes % 3 H (0-0) % Neutrophils # (Manual) 16.89 H (2.00-8.90) X 10*3/uL Lymphocytes # (Manual) 0.77 L (0.90-5.00) X 10*3/uL Eosinophils # (Manual) 0 L (0.04-0.35) X 10*3/uL Glucose 114 H (70-110) mg/dL Total Bilirubin <0.15 L (0.30-1.20) mg/dL AST 62 H (14-35) U/L ALT 92 H (10-49) U/L Assessment and Plan (1) Liposarcoma of left lower extremity Current Visit: Yes Status: Acute Priority: High Code(s): C49.22 - MALIG NEOPLM OF CONN AND SOFT TISS OF LEFT LOW LIMB, INC HIP SNOMED Code(s): 86203 9008 (2) Anxiety about health Current Visit: Yes Status: Chronic Priority: High Code(s): F41.8 - OTHER SPECIFIED ANXIETY DISORDERS SNOMED Code(s): 822201859 Plan: Admit for cycle #3 neoadjuvant AIM for Lt posteriolateral mixoid liposarcoma. Patient doing well so far, no acute physical complaints, no acute changes. Labs daily Daily wt Regular diet Activity 4x/d Supportive meds for common side effects Oral care, salt and soda GI/DVT prophylaxis Follow up daily Hope to have treatment completed Wendi Quispe attests: I have seen and examined patient, performed H&P, developed impression and plan of care. Discussed with dictator. Agree with documentation, dictated as a scribe
[2022-02-07] MEDS: ALPRAZolam 1 MG TAB PO PRN (20:23)
[2022-02-07] MEDS: CYCLOBENZAPRINE 10 MG TAB PO PRN (20:23)
[2022-02-08] MEDS: SALT AND SODA MOUTHWASH 1,000 ML PO SCH ×5 (01:24→20:07)
[2022-02-08] MEDS: SODIUM CHLORIDE 0.9% 1,000 ML IV SCH ×3 (04:09→18:16)
[2022-02-08 08:44] LABS: HCT 35.4 % (39.6-50.0); HGB 11.3 g/dL (13.0-17.0); MCH 29.1 pg (27.0-32.0); MCHC 31.9 g/dL (32.0-37.0); MCV 91.2 fL (80.0-97.0); Mean Platelet Volume 9.1 fL (9.5-12.2); NRBC Per 100 WBC 0 /100 WBCS (0.0-0.0); Platelet Count 472 X 10*3/uL (140-440); RBC 3.88 X 10*6/uL (4.40-5.60); RDW 14.8 % (11.5-14.5); WBC 20.03 X 10*3/uL (4.50-10.00)
[2022-02-08 09:12] LABS: ALT 76 U/L (10-49); AST 39 U/L (14-35); Alkaline Phosphatase 76 U/L (41-126); BUN/Creat Ratio 12.75 Ratio (12.00-20.00); Blood Urea Nitrogen 10.2 mg/dL (9.0-27.0); Calcium 8.9 mg/dL (8.7-10.3); Chloride 105 mmol/L (96-109); Glucose 105 mg/dL (70-110); Non-African American GFR(CKD) 118.2 (60.0-200.0); Potassium 4.5 mmol/L (3.5-5.5); Sodium 140 mmol/L (135-145); Total Bilirubin <0.15 mg/dL (0.30-1.20)
[2022-02-08] MEDS ORDERED: ALPRAZolam 1 MG TAB PO STA (10:54)
[2022-02-08 11:45] LABS: Eosinophils # (M) 0 X 10*3/uL (0.04-0.35); Metamyelocytes % 2 % (0-0); Myelocytes % 4 % (0-0); Neutrophils # (M) 15.62 X 10*3/uL (2.00-8.90); Neutrophils % (M) 78 %; RBC Morphology NORMAL
[2022-02-08 12:09] LABS: Appearance,Urine Clear (Clear); Bilirubin,Urine Negative (Negative); Blood,Urine Negative (Negative); Color,Urine Light Yellow; Glucose,Urine (UA) Negative (Negative); Ketones,Urine Trace (Negative); Leukocyte Esterase,Urine Negative (Negative); Nitrite,Urine Negative (Negative); PH, Urine 6.5 (5.0-8.0); Protein,Urine Negative (Negative); Specific Gravity,Urine 1.015 (1.001-1.035); Urobilinogen,Urine <2.0 mg/dL (<2.0)
[2022-02-08] MEDS: FAMOTIDINE 20 MG/2 ML VIAL IV SCH (14:19)
[2022-02-08] MEDS: DEXAMETHASONE SOD PHOSPHATE 10 MG/ML 1 ML VIAL IV SCH (14:19)
[2022-02-08] MEDS: ONDANSETRON 16 MG in SODIUM CHLORIDE 0.9% 50 ML IVPB SCH (14:19)
[2022-02-08] MEDS: SODIUM CHLORIDE 0.9% IV SCH ×5 (15:01→21:54)
[2022-02-08] MEDS: MESNA IV SCH ×3 (15:01→21:54)
[2022-02-08] MEDS: IFOSFAMIDE IV SCH (15:30)
[2022-02-08] MEDS: DOXORUBICIN HCL IV SCH (15:31)
--- NOTE | 2022-02-08 19:47 | P.PN ---
Subjective Progress Note Date: 02/08/22 Principal diagnosis: Continuous IV infusion, AIM, myxoid liposarcoma In follow-up today patient continues on treatment, no acute side effects to report,denies fevers, oral irritation, sore throat, shortness of breath, cough, palpitations, nausea, vomiting, abdominal pain, indigestion, heartburn, acute changes in bowel or bladder habits, swelling in the legs. He is not experie ncing any pain. He is ambulatory. He is voicing being very anxious about discharge-which he thought would be tomorrow. Objective - Vital Signs Vital signs: Vital Signs Temp 97.9 F 02/08/22 12:00 Pulse 69 02/08/22 12:00 Resp 16 02/08/22 12:00 BP 149/85 02/08/22 12:00 Pulse Ox 99 02/08/22 12:00 FiO2 Intake & Output 02/08/22 02/08/22 02/09/22 06:59 18:59 06:59 Intake Total 2440 4202 Balance 2440 4202 Intake: IV 252 DOXOrubicin HCL 50 mg 252 DOXOrubicin HCL 4 mg In Sodium Chloride 0.9% 500 ml 500 ml @ 21.958 mls/hr IV Q24H [facility] Rx#: [id number] Intake, IV Titration 1850 2450 Amount Ifosfamide 5,400 mg In 500 Sodium Chloride 0.9% 500 ml 500 ml @ 202.667 mls/ hr IV Q24H [facility] Rx#: [id number] [place] 1,100 mg In Sodium 50 100 Chloride 0.9% 50 ml @ 244 mls/hr IV TID@1330,1800, 2200 [facility] Rx#:[id number] Ondansetron 16 mg In 50 Sodium Chloride 0.9% 50 ml @ 232 mls/hr IVPB Q24H [facility] Rx#:[id number] Sodium Chloride 0.9% 1, 1800 1800 000 ml @ 150 mls/hr IV . Q6H40M [facility] Rx#:[id number] Oral 590 1500 - Constitutional General appearance: Present: average body habitus, cooperative, no acute distress - EENT Eyes: Present: anicteric sclerae, EOMI ENT: Present: hearing grossly normal, normal oropharynx - Respiratory Respiratory: bilateral: CTA - Cardiovascular Rhythm: regular Heart sounds: normal: S1, S2 Abnormal Heart Sounds: Absent: systolic murmur, diastolic murmur, rub, S3 Gallop, S4 Gallop, click, other - Peripheral edema leg Peripheral Edema: bilateral: None - Gastrointestinal General gastrointestinal: Present: normal bowel sounds, soft. Absent: absent bowel sounds, decreased bowel sounds, distended, hepatomegaly, hyperactive bowel sounds, organomegaly, rigid, scaphoid, splenomegaly, tenderness, umbilical hernia, ventral hernia - Integumentary Integumentary: Present: normal - Neurologic Neurologic: Present: CNII-XII intact - Musculoskeletal Musculoskeletal: Present: strength equal bilaterally - Psychiatric Psychiatric: Present: A&O x's 3, appropriate affect, intact judgment & insight - Labs CBC & Chem 7: 02/08/22 05:48 02/08/22 05:48 Labs: Abnormal Lab Results - Last 24 Hours (Table) 02/08/22 02/08/22 02/08/22 Range/Units 05:48 05:48 11:46 WBC 20.03 H (4.50-10.00) X 10*3/uL RBC 3.88 L (4.40-5.60) X 10*6/uL Hgb 11.3 L (13.0-17.0) g/dL Hct 35.4 L (39.6-50.0) % MCHC 31.9 L (32.0-37.0) g/dL RDW 14.8 H (11.5-14.5) % Plt Count 472 H (140-440) X 10*3/uL Plt Count Comment INCREASED A MPV 9.1 L (9.5-12.2) fL Metamyelocytes % 2 H (0-0) % Myelocytes % 4 H (0-0) % Neutrophils # (Manual) 15.62 H (2.00-8.90) X 10*3/uL Eosinophils # (Manual) 0 L (0.04-0.35) X 10*3/uL Basophils # (Manual) 0.20 H (0.00-0.10) X 10*3/uL Total Bilirubin <0.15 L (0.30-1.20) mg/dL AST 39 H (14-35) U/L ALT 76 H (10-49) U/L Total Protein 6.0 L (6.2-8.2) g/dL Urine Ketones Trace H (Negative) Assessment and Plan (1) Liposarcoma of left lower extremity Current Visit: Yes Status: Acute Priority: High Code(s): C49.22 - MALIG NEOPLM OF CONN AND SOFT TISS OF LEFT LOW LIMB, INC HIP SNOMED Code(s): 057498212 (2) Anxiety about health Current Visit: Yes Status: Chronic Priority: High Code(s): F41.8 - OTHER SPECIFIED ANXIETY DISORDERS SNOMED Code(s): 191629280 Plan: Admit for cycle #3 neoadjuvant AIM for Lt posteriolateral mixoid liposarcoma. Patient doing well so far, no acute physical complaints, no acute changes. Labs daily, UA daily Daily wt Regular diet Activity 4x/d Supportive meds for common side effects Oral care, salt and soda GI/DVT prophylaxis Follow up daily Hope to have treatment completed Sun. Added xanax BID PRN for pt anxiety.
[2022-02-08] MEDS: CYCLOBENZAPRINE 10 MG TAB PO PRN (21:53)
[2022-02-08] MEDS: ALPRAZolam 1 MG TAB PO PRN (21:53)
[2022-02-09] MEDS: SALT AND SODA MOUTHWASH 1,000 ML PO SCH ×5 (02:49→20:09)
[2022-02-09] MEDS: SODIUM CHLORIDE 0.9% 1,000 ML IV SCH ×3 (02:51→15:24)
[2022-02-09 04:32] LABS: Appearance,Urine Clear (Clear); Bilirubin,Urine Negative (Negative); Blood,Urine Negative (Negative); Color,Urine Light Yellow; Glucose,Urine (UA) Negative (Negative); Ketones,Urine Trace (Negative); Leukocyte Esterase,Urine Negative (Negative); Nitrite,Urine Negative (Negative); Protein,Urine Negative (Negative); Specific Gravity,Urine 1.015 (1.001-1.035); Urobilinogen,Urine <2.0 mg/dL (<2.0)
[2022-02-09] MEDS ORDERED: DOCUSATE 100 MG CAP PO SCH (09:00)
[2022-02-09 09:17] LABS: ALT 58 U/L (10-49); AST 25 U/L (14-35); Albumin 3.8 g/dL (3.8-4.9); Albumin/Globulin Ratio 2.11 (1.60-3.17); Alkaline Phosphatase 72 U/L (41-126); BUN/Creat Ratio 12.63 Ratio (12.00-20.00); Blood Urea Nitrogen 10.1 mg/dL (9.0-27.0); Calcium 8.7 mg/dL (8.7-10.3); Carbon Dioxide 23.2 mmol/L (20.0-27.5); Chloride 103 mmol/L (96-109); Globulin 1.8 g/dL (1.6-3.3); Glucose 92 mg/dL (70-110); Non-African American GFR(CKD) 118.2 (60.0-200.0); Potassium 4.1 mmol/L (3.5-5.5); Sodium 135 mmol/L (135-145); Total Bilirubin <0.15 mg/dL (0.30-1.20); Total Protein 5.6 g/dL (6.2-8.2)
[2022-02-09 09:58] LABS: Basophils # (A) 0.03 X 10*3/uL (0.00-0.10); Basophils % (A) 0.2 %; Eosinophils # (A) 0 X 10*3/uL (0.04-0.35); Eosinophils % (A) 0 %; HCT 31.7 % (39.6-50.0); Immature Grans, Automated 1.8 %; Lymphocytes % (A) 15.1 %; MCH 29.6 pg (27.0-32.0); MCHC 34.7 g/dL (32.0-37.0); MCV 85.4 fL (80.0-97.0); Monocytes # (A) 1.57 X 10*3/uL (0.20-1.00); Monocytes % (A) 12.5 %; NRBC Per 100 WBC 0 /100 WBCS (0.0-0.0); Neutrophils # (A) 8.85 X 10*3/uL (1.80-7.70); Neutrophils % (A) 70.4 %; Platelet Count 380 X 10*3/uL (140-440); RBC 3.71 X 10*6/uL (4.40-5.60); RDW 14.8 % (11.5-14.5); WBC 12.58 X 10*3/uL (4.50-10.00)
[2022-02-09] MEDS: ALPRAZolam 1 MG TAB PO PRN (11:09)
[2022-02-09] MEDS: DEXAMETHASONE SOD PHOSPHATE 10 MG/ML 1 ML VIAL IV SCH (12:58)
[2022-02-09] MEDS: FAMOTIDINE 20 MG/2 ML VIAL IV SCH (12:58)
[2022-02-09] MEDS: ONDANSETRON 16 MG in SODIUM CHLORIDE 0.9% 50 ML IVPB SCH (12:58)
--- NOTE | 2022-02-09 12:59 | P.DS ---
Providers Date of admission: 02/06/22 09:12 Expected date of discharge: 02/09/22 Attending physician: Junior Walden MD Primary care physician: Junior Walden MD - Discharge Diagnosis(es) (1) Liposarcoma of left lower extremity Current Visit: Yes Status: Acute Priority: High (2) Anxiety about health Current Visit: Yes Status: Chronic Priority: High Hospital Course: Patient is admitted for third cycle of neoadjuvant a IM for myxoid liposarcoma of the left lower extremity. Patient has tolerated treatment with no unmanageable side effects, no fevers, chills, oral irritation, sore throat, cough, nausea, vomiting, abdominal pain or cramping, acute changes in bowel or bladder habits. Patient remained ambulatory. Labs stable. Vital signs stable. Xanax was used for hospital induced anxiety. Assessment: Well-developed, well-nourished, no acute distress, normocephalic, atraumatic, anicteric sclera, no oral thrush or lesions, bilateral breath sounds CTA, no adventitious breath sounds, respirations are even and unlabored, S1, S2, no murmur, gallop or rub. Abdomen soft, nontender, bowel sounds positive. No lower extremity swelling. No rashes or unusual bruising of the skin. Alert and oriented 4, appropriate mood and affect, mild anxiety. Pertinent Studies: CBC, CMP, urinary analysis all reviewed, as anticipated well participating in treatment. Procedures: None Patient Condition at Discharge: Stable Plan - Discharge Summary Discharge Rx Participant: No New Discharge Prescriptions: No Action Cyclobenzaprine [Flexeril] 10 mg PO TID PRN #20 tab PRN Reason: Spasms Ondansetron [Zofran] 4 mg PO Q4HR PRN #45 tab PRN Reason: Nausea HYDROcodone/APAP 10-325MG [[place] 10-325] 1 tab PO Q6HR PRN 3 Days #12 tab PRN Reason: Pain Discharge Medication List Cyclobenzaprine [Flexeril] 10 mg PO TID PRN #20 tab 01/18/22 [Rx] HYDROcodone/APAP 10-325MG [[place] 10-325] 1 tab PO Q6HR PRN 3 Days #12 tab 01/18/22 [Rx] Ondansetron [Zofran] 4 mg PO Q4HR PRN #45 tab 01/18/22 [Rx] Follow up Appointment(s)/Referral(s): Junior Walden MD [Primary Care Provider] - 02/13/22 11:00 am Activity/Diet/Wound Care/Special Instructions: Activity as tolerated Diet as tolerated [place] fluid intake Temperature monitoring. Patient is to contact the office with a temperature of 100.5 Fahrenheit or higher. [phone] Lab draw on Sunday02/13/22. Be sure to get additional appointments with nurses at that time. Prescriptions refilled from the office. All sent to [facility]. Discharge Disposition: HOME SELF-CARE Pending Studies Pending Results: Nothing pending
[2022-02-09] MEDS: SODIUM CHLORIDE 0.9% IV SCH ×4 (13:21→22:01)
[2022-02-09] MEDS: MESNA IV SCH ×3 (13:21→22:01)
[2022-02-09] MEDS: IFOSFAMIDE IV SCH (13:42)
[2022-02-09 21:57] VITALS: RESP 18
[2022-02-09 22:29] VITALS: BP 149/94; PULSE 81; TEMP 98.4
== END 2022-02-09 22:25 | disposition home or self-care (01) | DRG 847 ==
LOC: 5NMEDONC 09:12
PROVIDERS: ADMIT Internal Medicine; ATTEND Internal Medicine
DX: Z51.11 Encounter for antineoplastic chemotherapy (principal); C49.22 Malignant neoplasm of connective and soft tissue of left lower limb, including hip; C49.9 Malignant neoplasm of connective and soft tissue, unspecified; F41.9 Anxiety disorder, unspecified; G40.909 Epilepsy, unspecified, not intractable, without status epilepticus; Z87.891 Personal history of nicotine dependence; Z95.828 Presence of other vascular implants and grafts
CPT/HCPCS: 80053; 81003; 85025

== ENCOUNTER → 2022-03-06 | Outpatient (CLI) | payer OTHER ==
--- NOTE | 2022-03-07 05:46 | MR ---
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 CONTRAST: Standard multiplanar, multisequence MRI departmental protocol images were obtained without contrast a nd with 10 mL intravenous Gadavist gadolinium contrast. There is a large mass in the soft tissues posterior to the distal femur. Mass overall measures 5.5 x 11.5 cm. There is mild enhancement of the mass with the contrast. The anterior and posterior cruciate ligaments are intact. The collateral ligaments are intact. No foc al bone destruction. The medial and lateral menisci appear intact. No evidence of meniscal tear. No f racture seen. The joint spaces of the knee are fairly normal. There is a very small knee joint effusi on. There is minimal subcutaneous edema anterior to the patella and the patella tendon. IMPRESSION: Large lobulated mass posterior to the distal femur in the soft tissues which shows some patchy enhanc ement and consistent with a tumor that is not changed significantly in size compared to last exam. Th e enhancement pattern is more diffuse compared to last exam. No evidence of ligamentous or meniscal tear. No fracture. No evidence of bone involvement.
== END | disposition home or self-care (01) ==
LOC: RADMRIMAIN 17:16
PROVIDERS: ATTEND Radiology Radiation Oncology
DX: C49.22 Malignant neoplasm of connective and soft tissue of left lower limb, including hip (principal); M79.89 Other specified soft tissue disorders; F17.210 Nicotine dependence, cigarettes, uncomplicated
CPT/HCPCS: 73723; A9585

== ENCOUNTER → 2022-05-10 | Outpatient (CLI) | payer OTHER ==
--- NOTE | 2022-05-11 05:07 | MR ---
EXAMINATION TYPE: MR knee LT wo/w con DATE OF EXAM: 05/10/2022 COMPARISON: 03/06/2022 HISTORY: Left knee pain, liposarcoma of connective tissue. CONTRAST: Standard multiplanar, multisequence MRI departmental protocol images were obtained without contrast a nd with 10 mL intravenous Gadavist gadolinium contrast. The anterior and posterior cruciate ligaments are intact. The medial and lateral menisci appear intac t. There is a minimal knee joint effusion. Patella is intact. The collateral ligaments are intact. No evidence of a fracture. No focal bone destruction. There is a sharply marginated slightly lobulated mass in the soft tissues posterior to the distal fem ur which is slightly lateral and measures 10 x 5 x 5 cm. The lesion shows some heterogeneous enhancem ent. Margins are fairly sharp. The mass has intermediate signal on the T1 images and increased fluid signal on the proton density and T2 images. The adjacent muscle bundles of the posterior distal femur appear intact. Mass lies between the posterior surface of the femur and the biceps muscle. The distal femur and proximal tibia appear intact. No focal bone destruction. No fracture. Possible f ibula is intact IMPRESSION: Large mass posterior to the distal femur in the soft tissues is sharply marginated and enhancing and consistent with a tumor. The appearance is nonspecific. The size is not significantly different than exam 2 months ago. There is a small knee joint effusion. No evidence of ligament or meniscal tear. Joint effusion unchan ged.
--- NOTE | 2022-05-11 08:57 | CT ---
EXAMINATION TYPE: CT chest wo/w con CT DLP: 869.90 mGycm, Automated exposure control for dose reduction was used. DATE OF EXAM: 05/10/2022 5:58 PM COMPARISON: 11/29/2021, CT 11/08/2021 CLINICAL INDICATION:Male, 31 years old with history of C49.9, poss lung nodule. Hx of liposarcoma on left knee TECHNIQUE: Multiple axial images were obtained through the chest. Sagittal and coronal reformats were created for review. Contrast used:100 mL of Isovue 300 without and with IV Contrast Oral contrast used: none. FINDINGS: LUNGS/ PLEURA: Right lower lobe calcified granuloma. No suspicious pulmonary nodules. No focal consol idation, pneumothorax or pleural fusion. AIRWAY: Patent and unremarkable. HEART: Size within normal limits. MEDIASTINUM: No gross evidence of adenopathy. VASCULATURE: No aortic aneurysm. MUSCULOSKELETAL: No acute osseous abnormalities, no evidence for mass. Osseous structures are intact. SOFT TISSUES/LYMPH NODES: Unremarkable. LOWER NECK: No significant findings. UPPER ABDOMEN: No significant findings. IMPRESSION: No evidence for lymphadenopathy. Right lower lobe calcified granuloma, no suspicious pulmonary nodule s. No abnormal postcontrast enhancement. No suspicious osseous lesion.
== END | disposition home or self-care (01) ==
LOC: RADCTMAIN 17:19
PROVIDERS: ATTEND Surgery Surgical Oncology
DX: C49.9 Malignant neoplasm of connective and soft tissue, unspecified (principal); J84.10 Pulmonary fibrosis, unspecified; M25.462 Effusion, left knee
CPT/HCPCS: 71270; 73723; A9585; Q9967

== ENCOUNTER → 2022-12-18 | Outpatient (CLI) | payer OTHER ==
--- NOTE | 2022-12-19 10:48 | CT ---
EXAMINATION TYPE: CT chest wo/w con DATE OF EXAM: 12/18/2022 COMPARISON: 05/10/2022 HISTORY: Malignant Ca. Left leg CT DLP: 869.6 mGycm Automated exposure control for dose reduction was used. CONTRAST: CT scan of the chest is performed without and with IV Contrast, patient injected with 100 cc mL of Is ovue 300. FINDINGS: LUNGS: The lungs are grossly clear, there is no concerning parenchymal mass or nodule identified. R edemonstrated is a right lower lobe calcified granuloma. There is a small new right basilar pleural e ffusion with mild pleural thickening. There is no pleural effusion or pneumothorax seen. The tracheo bronchial tree is patent. MEDIASTINUM: There are no greater than 1 cm hilar or mediastinal lymph nodes. No pericardial effusi on is seen. Thoracic aorta is of normal caliber. The heart is not enlarged. Residual thymic tissue s een anterior mediastinum. UPPER ABDOMEN: No significant abnormality appreciated. OTHER: No additional significant abnormality is seen. IMPRESSION: 1. there is a stable right lower lobe calcified granuloma however there is adjacent small effusion an d mild pleural thickening identified at this time. The findings are nonspecific however consider furt her evaluation with PET CT and/or short-term follow-up CT in 3 months.
--- NOTE | 2022-12-20 11:30 | MR ---
EXAMINATION TYPE: MR femur/thigh LT wo/w con DATE OF EXAM: 12/18/2022 COMPARISON: MRI left knee 05/10/2022. No radiographic correlation available. HISTORY: 32-year-old male C41.9, bone sarcoma, Restaging Left thigh, residual limb for sarcoma, Lt th igh pain, Hx Lt leg amputation Technique: Multiplanar, multisequence images of the left femur/thigh were obtained before and after a dministration of 10 mL intravenous Gadavist gadolinium contrast. FINDINGS: Interval [id number] amputation. Patchy muscular edema and some corresponding postcontrast enhance ment is present along the residual mid to distal thigh. There is some focal irregularity at the central portion of the osteotomy margin with corresponding in creased signal and postcontrast enhancement. In addition, there is increased fluid signal along both the anterior and posterior femoral shaft abelardo osteum extending 6 to 7 cm above the osteotomy margin. The cortex here also shows intermediate T1 sylvia ghted signal. Both the anterior and posterior periosteum and cortex show some enhancement on postcont rast sequences. For example, refer to sagittal series 02/26/2001 image 18 and image 19. No residual masslike soft tissue enhancement is seen. The more proximal to mid femur show no gross abnormality. IMPRESSION: 1. Interval left-sided above the knee amputation with patchy muscular edema and enhancement likely po stsurgical/posttreatment change. 2. While there is no residual masslike soft tissue enhancement seen, there is a small area of enhance ment along the mid osteotomy margin as well as some cortical and periosteal enhancement both anterior ly and posteriorly extending 6 to 7 cm above the osteotomy. Again, findings may be on a postsurgical basis. Short interval follow-up recommended to reassess. Refer to sagittal postcontrast series 1102 i mage 18 and 19 for some termite control service representative images.
== END | disposition home or self-care (01) ==
LOC: RADCTMAIN 18:56
PROVIDERS: ATTEND Surgery Surgical Oncology
DX: C41.9 Malignant neoplasm of bone and articular cartilage, unspecified (principal); J92.9 Pleural plaque without asbestos; J90 Pleural effusion, not elsewhere classified; J84.10 Pulmonary fibrosis, unspecified; R60.0 Localized edema
CPT/HCPCS: 71270; 73720; Q9967; A9585

== ENCOUNTER → 2023-03-28 | Outpatient (CLI) | payer OTHER ==
--- NOTE | 2023-03-28 15:23 | CT ---
EXAMINATION TYPE: CT chest w con DATE OF EXAM: 03/28/2023 COMPARISON: 12/18/2022 HISTORY: Malignant NEOPLASM CONNECTIVE SOFT TISSUE CT DLP: 666.0 mGycm, Automated exposure control for dose reduction was used. CONTRAST: Performed injected with 100ml mL of Isovue 300. TECHNIQUE: Axial images were obtained at 5 mm thick sections. Reconstructed images are reviewed on [employer] computer in the coronal plane. FINDINGS: Portion of the thyroid visualized is normal. No suspicious lung nodules or focal infiltrates are present. Calcified granuloma in the posterior med ial right lung base is stable. Prior right pleural effusion is resolved. Minimal streak atelectasis l ikely present lung bases. No enlarged mediastinal or hilar adenopathy is evident. The ascending aorta diameter at the level o f the main pulmonary artery is 3.3 cm. The main pulmonary artery diameter at the bifurcation is 3.5 cm. Consider early pulmonary hypertension. Limited CT sections are obtained through the upper abdomen. There is mild fatty infiltration of the l iver. No discrete masses are evident within the field of view. IMPRESSION: 1. No suspicious acute changes identified. 2. Some early pulmonary hypertension may be present. Clinical correlation recommended.
== END | disposition home or self-care (01) ==
LOC: RADMRIMAIN 13:16
PROVIDERS: ATTEND Internal Medicine
DX: C49.9 Malignant neoplasm of connective and soft tissue, unspecified (principal); I27.20 Pulmonary hypertension, unspecified
CPT/HCPCS: 71260; 73720; Q9967; A9585

== ENCOUNTER → 2023-06-26 | Outpatient (CLI) | payer OTHER ==
--- NOTE | 2023-06-26 12:08 | CT ---
EXAMINATION TYPE: CT chest w con CT DLP: 459.50 mGycm, Automated exposure control for dose reduction was used. DATE OF EXAM: 06/26/2023 11:56 AM COMPARISON: 03/28/2023. CLINICAL INDICATION:Male, 32 years old with history of C49.9 liposarcoma; PHH, liposarcoma. hx of leg leg amputation. obs for mets TECHNIQUE: Multiple axial images were obtained through the chest. Sagittal and coronal reformats were created for review. Contrast used:100ml mL of Isovue 300 with IV Contrast (None if empty) Oral contrast used: (None if empty) FINDINGS: LUNGS/ PLEURA: The lung parenchyma appears unremarkable. No pulmonary nodules identified. No focal c onsolidation, pneumothorax or pleural effusion. AIRWAY: Patent and unremarkable. HEART: Size within normal limits. MEDIASTINUM: No gross evidence of adenopathy. VASCULATURE: No aortic aneurysm. MUSCULOSKELETAL: No acute osseous abnormalities SOFT TISSUES/LYMPH NODES: Unremarkable. LOWER NECK: No significant findings. UPPER ABDOMEN: No significant findings. IMPRESSION: No evidence for lymphadenopathy or evidence suggest metastatic disease.
--- NOTE | 2023-06-26 12:39 | MR ---
EXAMINATION: MR femur/thigh LT wo/w con DATE OF EXAM: 06/26/2023 COMPARISON: MRI left femur 12/18/2022 and 03/28/2023 HISTORY: 3 month F/U Malignant neoplasm connective soft tissue, at bottom of stump. TECHNIQUE: Multiplanar, multisequence images of the left leg were acquired without and with contrast. FINDINGS: BONES/MARROW: Patient is status post [id number] amputation. Further decrease in the low T1 signal defect in the central marrow at the femoral amputation site. No significant change to the intermediate T1 signal abnormality involving the anterior and posterior femoral cortices proximal to the amputation site. No new areas of abnormal marrow signal or enhancement. SOFT TISSUES: Persistent, but decreased intramuscular edema in the rectus femoris muscle. No anatomic variant. No bursal distention. No fluid collection. NEUROVASCULAR: Visualized neurovascular structures are normal. OTHER: Normal. No mass. No lymphadenopathy. IMPRESSION: 1. No significant change to the intermediate T1 signal abnormality involving the distal femur cortice s. 2. Decreased intramedullary defect at the amputation. 3. Decreasing rectus femoris muscular edema.
== END | disposition home or self-care (01) ==
LOC: RADMRIMAIN 09:12
PROVIDERS: ATTEND Internal Medicine
DX: C49.9 Malignant neoplasm of connective and soft tissue, unspecified (principal); R60.9 Edema, unspecified; Z71.3 Dietary counseling and surveillance
CPT/HCPCS: 71260; 73720; Q9967; A9585

== ENCOUNTER → 2023-08-07 | Outpatient (CLI) | payer OTHER ==
--- NOTE | 2023-08-07 12:46 | US ---
EXAMINATION TYPE: US extremity nonvasc mass RT DATE OF EXAM: 08/07/2023 COMPARISON: NONE CLINICAL INDICATION: Male, 32 years old with history of C49.9,R22.31 SWELLING UPPER ARM; Patient has felt lump in the right anterior-medial upper arm x 2 weeks. Area is not painful. TECHNIQUE: Scanned right anterior-medial upper arm at patient's palpable area of concern. Color Dopp ler images were obtained. FINDINGS/IMPRESSION: Smoothly marginated ovoid mass in the patient's region of palpable abnormality w ithin the right anterior upper arm is identified. This is hypoechoic in appearance with color Doppler flow identified. Approximately 6 mm below the skin surface. This mass is nonspecific with a variety of etiologies. Consider ultrasound-guided tissue sampling due to patient's history of liposarcoma.
== END | disposition home or self-care (01) ==
LOC: RADUSWWP 12:12
PROVIDERS: ATTEND Internal Medicine
DX: C49.9 Malignant neoplasm of connective and soft tissue, unspecified (principal); R22.31 Localized swelling, mass and lump, right upper limb; Z71.3 Dietary counseling and surveillance

== ENCOUNTER 2023-08-21 12:58 | Day surgery (SDC) | payer OTHER ==
[2023-08-21] MEDS: ALPRAZolam 0.5 MG TAB PO PRN (13:45)
[2023-08-21 14:41] VITALS: RESP 18
[2023-08-21 15:10] VITALS: TEMP 97.4
[2023-08-21 15:16] VITALS: BP 134/77; PULSE 58
--- NOTE | 2023-08-21 16:09 | US ---
EXAMINATION TYPE: US biopsy soft tissue/muscle DATE OF EXAM: 08/21/2023 2:53 PM CLINICAL INDICATION:Male, 33 years old with history of C49.9 MALIGNANT NEOPLASM OF CONNECTIVE AND SOF T TI; , thyroid nodule. COMPARISON: 08/07/2023. ATTENDING: Dr. Pj Hummel PROCEDURE: Informed consent was obtained. The risks and benefits of the procedure were discussed with the patien t. The site was marked. Timeout procedure was performed Ultrasound imaging anterior right arm mass. The patient was prepped, draped in the usual sterile fashion, and locally anesthetized with 1% lidoca ine. 3 18-gauge core needle biopsies were obtained. Samples were sent to the pathology department for further analysis. Patient tolerated the procedure without incident and was sent home in stable cond ition. IMPRESSION: Successful ultrasound guided core biopsy of the right arm mass.
== END 2023-08-21 15:20 | disposition home or self-care (01) ==
LOC: RADPROMAIN 12:58
PROVIDERS: ATTEND Internal Medicine
DX: C49.9 Malignant neoplasm of connective and soft tissue, unspecified (principal); E04.1 Nontoxic single thyroid nodule
CPT/HCPCS: 20206; 76942; 88305; 88341; 88342

== ENCOUNTER → 2023-09-08 | Outpatient (CLI) | payer OTHER ==
--- NOTE | 2023-09-15 09:09 | MR ---
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 No G adolinium was given. Liposarcoma, Hx of biopsy 2 weeks ago, Hx of cancer Lt leg and right shoulder FINDINGS: There is a high T2 low T1 signal mass with some mild mural thickening along the lateral aspect measur ing 48 x 21 x 42 mm which appears be present in the subcutaneous tissues anterior to the muscle fasci a. This immediately abuts the fascia does not definitively invade. There is fatty plane between the m uscles and the mass in the subcutaneous tissues. 6 mm focus of high T2 low T1 bone marrow signal series 301 image 29 with postcontrast enhancement maikel picious for additional site of metastatic disease. The remainder of the muscles and tendons are grossly intact. Rotator cuff muscles and appropriate vol ume. IMPRESSION: 1. Subcutaneous mass with some mild mural thickening along the lateral aspect measuring 48 x 21 x 42 mm which appears be present in the subcutaneous tissues anterior to the muscle fascia. This immediat ramsey abuts the fascia does not definitively invade. 2. Additional high T2 focus within the bone marrow of the proximal humerus measuring 6 mm. Without p ostcontrast enhancement. Findings suspicious for additional metastatic focus.
== END | disposition home or self-care (01) ==
LOC: RADMRIMAIN 10:48
PROVIDERS: ATTEND Internal Medicine
DX: C49.9 Malignant neoplasm of connective and soft tissue, unspecified (principal); R22.9 Localized swelling, mass and lump, unspecified
CPT/HCPCS: 73223; A9585

== ENCOUNTER → 2023-12-21 | Outpatient (CLI) | payer OTHER ==
--- NOTE | 2023-12-24 09:52 | MR ---
EXAMINATION TYPE: MR femur/thigh LT wo/w con DATE OF EXAM: 12/21/2023 COMPARISON: 06/26/2023 HISTORY: Liposarcoma Left thigh, Hx amputation Lt thigh, Recent reoccurrence on shoulder, Lt thigh re tracting causing pain and nerve issues CONTRAST: Standard multiplanar, multisequence MRI departmental protocol images were obtained without contrast a nd with 9 mL intravenous Gadobutrol gadolinium contrast. FINDINGS: Mnmeg-cur-vkoq amputation. No evidence of abscess at the amputation site. Persistent diffuse cortical hyperintense T2/isointense T1 signal involving the mid to distal femoral diaphysis anteriorly and po steriorly with mild associated contrast enhancement. Bone marrow signal is within normal limits. Nega tive for fracture. No soft tissue mass or pathologic soft tissue enhancement. Mild asymmetric thicken ing of the sciatic nerve just proximal to the amputation. Generalized left thigh muscular atrophy. Im proving mild intramuscular edema about the amputation stump, slightly greater laterally. No inguinal chain adenopathy. IMPRESSION: 1. No new suspicious mass. 2. Persistent abnormal cortical signal involving the anterior and posterior aspects of the mid to dis te femur with low-level enhancement. Findings are nonspecific but may relate to disuse. No discrete marrow replacing lesion. 3. Improving intramuscular edema along the amputation site. No focal fluid collections. 4. Mild asymmetric enlargement of the distal left sciatic nerve stump just proximal to the amputation . 5. Generalized left thigh muscular atrophy. [facility], Workstation: [facility], 12/24/2023 9:49 AM
== END | disposition home or self-care (01) ==
LOC: RADMRIMAIN 20:15
PROVIDERS: ATTEND Internal Medicine
DX: C49.9 Malignant neoplasm of connective and soft tissue, unspecified (principal)

== ENCOUNTER → 2023-12-29 | Outpatient (CLI) | payer OTHER ==
--- NOTE | 2023-12-29 13:47 | XR ---
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 FINDINGS/IMPRESSION: : Amputation changes to the mid left femur diaphysis with surgical clips. No marlene dence for osseous erosion. No subcutaneous lucencies to suggest gas present. [facility], , 12/29/2023 1:45 PM
--- NOTE | 2023-12-30 20:22 | MR ---
EXAMINATION TYPE: MRI right shoulder without and with IV contrast DATE OF EXAM: 12/29/2023 COMPARISON: 09/08/2023 HISTORY: Liposarcoma myxoid left shoulder, post surgery 2 mos ago. TECHNIQUE: Multiplanar, multisequence images of the right shoulder shoulder is performed without and with 9 mL intravenous Gadavist gadolinium contrast. FINDINGS: Postsurgical changes along the subcutaneous tissues at the anterior inferior right deltoid. No suspic ious nodularity or enhancement at the postoperative bed. Minimal fascial enhancement near the postope rative bed, likely postsurgical. No bulky adenopathy. Interval enlargement of the intramedullary marrow replacing lesion along the anterior humeral diaphys is measuring 7 x 12 x 9 mm (previously 4 x 5 x 6 mm). No other marrow replacing lesions. Mild infraspinatus tendinopathy. Rotator cuff is otherwise intact. No significant rotator cuff muscle atrophy or edema. Long head biceps tendon is intact. Small tear of the posterosuperior labrum. Suspe cted small tear of the anterior labrum. No focal chondral defects or joint effusion. Mild acromioclavicular joint osteoarthritis. No significant fluid in the subacromial/subdeltoid bursa. IMPRESSION: 1. Postsurgical change from sarcoma resection near the anterior inferior deltoid subcutaneous tissues . No residual nodular mass or suspicious enhancement. Mild adjacent fascial enhancement, likely opera tive. Attention on follow-up. 2. Interval enlargement of the marrow replacing lesion within the proximal humeral diaphysis concerni ng for metastatic disease. 3. Additional findings as above. [facility], , 12/30/2023 8:19 PM
== END | disposition home or self-care (01) ==
LOC: RADMRIMAIN 13:10
PROVIDERS: ATTEND Internal Medicine
DX: C49.9 Malignant neoplasm of connective and soft tissue, unspecified (principal); Z71.3 Dietary counseling and surveillance
CPT/HCPCS: 73552; 73223; A9585

== ENCOUNTER → 2024-03-21 | Outpatient (CLI) | payer OTHER ==
--- NOTE | 2024-03-22 08:12 | PE ---
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 Images are reviewed on the computer in the coronal, axial , and sagittal planes. Reconstructed rotating images are created on independent workstation and revi ewed on the computer. A non-contrast CT is performed in conjunction with the PET scan. Glucose leve l 91 mg/dL CT DLP: 1288 mGycm, Automated exposure control for dose reduction was used. COMPARISON: CT 06/26/2023, PET/CT None, MRI: Multiple MRIs FINDINGS: Mediastinal SUV mean is 2.2. Hepatic parenchyma SUV mean is 2.47. SKULL BASE AND NECK: No suspicious radiotracer activity. CHEST, MEDIASTINUM, AND HILAR REGION: No suspicious radiotracer activity. ABDOMEN AND PELVIS: No suspicious radiotracer activity. MUSCULOSKELETAL STRUCTURES: Left zzxbg-bet-vseg amputation Uptake within the osseous structures: Which is slightly more so than the remainder of the osseous str uctures including L5 vertebral body max SUV 4.8 in the sacrum max SUV 6.4. No finding on CT findings. Uptake is seen at the distal femur osseous structure amputation site max SUV 10.2 as well as a lymph node more medially max SUV 7.5. Focal uptake in the hamstring muscle max SUV 2.7 also seen more superiorly possibly physiologic. OTHER CT: Small fat-containing umbilical hernia. IMPRESSION: 1. Radiotracer uptake at the distal left thigh including distal femur and what is thought to be a ly mph node concerning for recurrent persistent malignancy. 2. Uptake within the L5 and sacrum possibly physiologic given its somewhat diffuse appearance and no CT correlate. Attention follow-up imaging. [facility], , 03/22/2024 8:10 AM
== END | disposition home or self-care (01) ==
LOC: RADPETMAIN 07:03
PROVIDERS: ATTEND Internal Medicine
DX: C49.22 Malignant neoplasm of connective and soft tissue of left lower limb, including hip (principal); R93.7 Abnormal findings on diagnostic imaging of other parts of musculoskeletal system
CPT/HCPCS: 78816; A9552

== ENCOUNTER → 2024-06-04 | Outpatient (CLI) | payer OTHER ==
--- NOTE | 2024-06-05 06:35 | MR ---
MRI CERVICAL SPINE: CLINICAL HISTORY: Neck pain, numbness and pain in right shoulder and arm to fingers. history of cance r left leg and right shoulder TECHNIQUE: Multiplanar, multisequence imaging of the cervical spine is performed without IV contrast. COMPARISON: PET CT March 21, 2024 FINDINGS: Sagittal images of the cervical spine show the craniocervical junction to appear within nor mal limits. The cervical and upper thoracic spinal cord is normal in course, caliber, and signal. Th ere is slight grade 1 anterolisthesis C7 on T1. The vertebral body and intravertebral disk heights a re normal. There is heterogeneous diminished T1 and increased T2 signal throughout the C7 vertebra. N o corresponding hypermetabolic uptake on PET/CT at this level. Posterior to the C7 vertebra there is suggestion of extradural lesion effacing the anterior spinal canal, this is not convincing, increased T2 signal seen sagittal image 9. Axial images show C2-C3 through C4-C5 levels to appear within normal limits. Axial images at C5-C6 levels show focal right paracentral disc protrusion effacing the anterolateral thecal sac and causing mild bilateral neural foraminal narrowing. Axial images at C6-C7 level shows left paracentral disc protrusion and annular tear mildly effacing t he anterior thecal sac. Bilateral neural foramina are seen. Axial images at C7-T1 level appear within normal limits. IMPRESSION: Abnormal appearance to the C7 vertebra of uncertain etiology. Possible diffuse osseous ed will. Possible additional edema posterior to this having mass effect on the anterior spinal canal at t his level. Consider CT myelogram and/or MRI with contrast follow-up to further evaluate. Additional m ild multilevel degenerative change at the C5-C6 and C6-C7 levels is noted. [facility], , 06/05/2024 6:32 AM
== END | disposition home or self-care (01) ==
LOC: RADMRIMAIN 21:15
PROVIDERS: ATTEND Orthopaedic Surgery
DX: M50.223 Other cervical disc displacement at C6-C7 level (principal); M47.812 Spondylosis without myelopathy or radiculopathy, cervical region
CPT/HCPCS: 72141

== ENCOUNTER 2024-06-07 11:33 | Emergency (ER) | payer OTHER ==
--- NOTE | 2024-06-07 11:58 | ED ---
Neck Injury/Pain HPI - General Chief Complaint: Back Pain/Injury Stated Complaint: Back/neck pain Time Seen by Provider: 06/07/24 11:55 Source: patient, RN notes reviewed Mode of arrival: wheelchair Limitations: no limitations - History of Present Illness Initial Comments: This is a 33-year-old male who presents to the emergency department for neck pain. Patient states that he has had neck pain going on for the last month, but states that it seems to be getting worse. It tends to radiate down to the area just above his shoulder blades and also radiates down both of his arms. Also reports numbness in his right upper extremity going down to the fingertips. He does have liposarcoma and underwent a left lower extremity amputation. He is not currently undergoing any treatment. He follows with Dr. Armstrong, orthopedic oncology in [place]. He is on Lewis, morphine, gabapentin, and Robaxin, without any relief in symptoms. MD Complaint: neck pain - Related Data Home Medications Medication Instructions Recorded Confirmed Gabapentin [Gabapentin ER] 600 mg PO BID 08/13/23 08/21/23 HYDROcodone/APAP 10-325MG [Lewis 1 tab PO Q4-6H PRN 08/13/23 08/21/23 10-325] Morphine Sulfate 15 mg PO BID 08/13/23 08/21/23 methocarbamoL 500 mg PO BID 08/13/23 08/21/23 traZODone HCL 100 mg PO DAILY 08/13/23 08/21/23 Allergies Allergy/AdvReac Type Severity Reaction Status Date / Time No Known Allergies Allergy Verified 06/07/24 11:41 Review of Systems ROS Statement: Those systems with pertinent positive or pertinent negative responses have been documented in the HPI. ROS Other: All systems not noted in ROS Statement are negative. Past Medical History Past Medical History: Cancer, Seizure Disorder Additional Past Medical History / Comment(s): L lower extremity myxoid liposarcoma, childhood seizures/outgrew, eyeball injury d/t paintball. History of Any Multi-Drug Resistant Organisms: None Reported Past Surgical History: No Surgical Hx Reported Additional Past Surgical History / Comment(s): Left leg biopsy, port and picc line, left leg amputation Past Anesthesia/Blood Transfusion Reactions: No Reported Reaction Past Psychological History: Anxiety Smoking Status: Former smoker Past Alcohol Use History: Rare Past Drug Use History: Marijuana - Past Family History Mother Family Medical History: No Reported History Additional Family Medical History / Comment(s): Father: Non-Hodgkin's Lymphoma Father Family Medical History: Cancer, Congestive Heart Failure (CHF), Diabetes Mellitus Additional Family Medical History / Comment(s): Father: Non-Hodgkin's Lymphoma passed 2012 General Exam Limitations: no limitations General appearance: alert, in no apparent distress Head exam: Present: atraumatic, normocephalic, normal inspection Respiratory exam: Present: normal lung sounds bilaterally. Absent: respiratory distress, wheezes, rales, rhonchi, stridor Cardiovascular Exam: Present: regular rate, normal rhythm Neurological exam: Present: alert, oriented X3, CN II-XII intact Psychiatric exam: Present: normal affect, normal mood Skin exam: Present: warm, dry, intact, normal color. Absent: rash Course Vital Signs 06/07/24 06/07/24 11:37 14:56 Temperature 97.7 F 98.4 F Pulse Rate 79 82 Respiratory 18 20 Rate Blood Pressure 149/94 136/80 O2 Sat by Pulse 97 99 Oximetry Medical Decision Making - Medical Decision Making This is a 33-year-old male who presents to the emergency department for neck pain. Was pt. sent in by a medical professional or institution? @ -No Did you speak to anyone other than the patient for history? @ -No Did you review nursing and triage notes? @ -Yes, and I agree, it is accurate with regards to the patient's symptoms. Were old charts reviewed? @ -MRI of the cervical spine from 06/05 demonstrating an abnormal appearance to the C7 vertebrae of uncertain etiology. There is possible diffuse osseous edema and possible additional edema posterior having mass effect on the anterior spinal canal. They advised consideration of a CT myelogram and/or MRI with contrast. Differential Diagnosis? @ -Differential Neck Pain: Fracture, dislocation, contusion, strain, DDD, disc herniation, this is not meant to be an all-inclusive list. EKG interpreted by me (3pts min.)? @ -Not obtained X-rays interpreted by me (1pt min.)? @ -Chest x-ray obtained, my interpretation identifies no localized consolidations or infiltrates. CT interpreted by me (1pt min.)? @ -Not obtained U/S interpreted by me (1pt. min.)? @ -Not obtained What testing was considered but not performed? (CT, X-rays, U/S, labs)? Why? @ -None What meds were considered but not given? Why? @ -None Did you discuss the management of the patient with other professionals? @ -Yes, Dr. Rodríguez, orthopedics, who advised transfer to a tertiary care facility for higher level of care. Dr. Gonzalez, ED provider at [facility], accepts the patient for transfer. Did you reconcile home meds? @ -No Was smoking cessation discussed for >3mins.? @ -No Was critical care preformed (if so, how long)? @ -No Were there social determinants of health that impacted care today? How? (Homelessness, low income, unemployed, alcoholism, drug addiction, transportation, low edu. Level, literacy, decrease access to med. care, residential, rehab)? @ -No Was there de-escalation of care discussed even if they declined? (Discuss DNR or withdrawal of care, Hospice)? @ -No What co-morbidities impacted this encounter? (DM, HTN, Smoking, COPD, CAD, Cancer, CVA, Hep., AIDS, mental health diagnosis, sleep apnea, morbid obesity)? @ -Liposarcoma Was patient admitted / discharged? @ -Transferred. Lab work unremarkable. He did have a cough and a chest x-ray was obtained revealing no acute process. Patient had an outpatient MRI of the cervical spine on 06/05 demonstrating an abnormal appearance to the C7 vertebrae of uncertain etiology. They advised possible diffuse osseous edema and possible additional edema posterior to this having mass effect on the anterior spinal canal at this level. They advised consideration of a CT myelogram and/or MRI with contrast for further evaluation. Both of our orthopedic spine surgeons are unavailable. I did speak with orthopedics on-call who advised that given the patient's complex medical history associated with his neurological symptoms, he advised transfer to a facility with the appropriate specialist available. Patient is established at [facility] with orthopedic oncology and requested transfer there. Dr. Arenas, orthopedics, accepts the transfer at their facility. Dr. Gonzalez is the accepting ED provider. Patient requested transfer via private vehicle and was sent with the documentation, lab results, and imaging. Case discussed with ED attending, Dr. Lester. Undiagnosed new problem with uncertain prognosis? @ -None Drug Therapy requiring intensive monitoring for toxicity (Heparin, Nitro, Insulin, Cardizem)? @ -None Were any procedures done? @ -None Diagnosis/symptom? @ -Possible cervical spinal cord compression, abnormal MRI of cervical spine Acute, or Chronic, or Acute on Chronic? @ -Acute Uncomplicated (without systemic symptoms) or Complicated (systemic symptoms)? @ -Uncomplicated Side effects of treatment? @ -None Exacerbation, Progression, or Severe Exacerbation] @ -Not applicable Poses a threat to life or bodily function? @ -Yes - Lab Data Result diagrams: 06/07/24 12:54 06/07/24 12:54 Lab Results 06/07/24 06/07/24 06/07/24 Range/Units 12:54 12:54 12:54 WBC 7.34 (4.50-10.00) 10*3/uL RBC 4.98 (4.40-5.60) 10*6/uL Hgb 14.5 (13.0-17.0) g/dL Hct 43.5 (39.6-50.0) % MCV 87.3 (80.0-97.0) fL MCH 29.1 (27.0-32.0) pg MCHC 33.3 (32.0-37.0) g/dL Plt Count 216 (140-440) 10*3/uL MPV 8.7 L (9.5-12.2) fL Immature Gran % (Auto) 0.4 % Neutrophils % 60.2 % Lymphocytes % 25.5 % Monocytes % 9.7 % Eosinophils % 3.7 % Basophils % 0.5 % Immature Gran # 0.03 (0.00-0.04) 10*3/uL Neutrophils # 4.42 (1.80-7.70) 10*3/uL Lymphocytes # 1.87 (0.90-5.00) 10*3/uL Monocytes # 0.71 (0.20-1.00) 10*3/uL Eosinophils # 0.27 (0.04-0.35) 10*3/uL Basophils # 0.04 (0.00-0.10) 10*3/uL Sodium 137 (137-145) mmol/L Potassium 4.3 (3.5-5.1) mmol/L Chloride 102 (98-107) mmol/L Carbon Dioxide 25 (22-30) mmol/L Anion Gap 10 mmol/L BUN 10 (9-20) mg/dL Creatinine 0.75 (0.66-1.25) mg/dL Est GFR (CKD-EPI)AfAm >90 (>60 ml/min/1.73 sqM) Est GFR (CKD-EPI)NonAf >90 (>60 ml/min/1.73 sqM) Glucose 99 (74-99) mg/dL Plasma Lactic Acid Jc 1.6 (0.7-2.0) mmol/L Calcium 9.1 (8.4-10.2) mg/dL Total Bilirubin 0.2 (0.2-1.3) mg/dL AST 30 (17-59) U/L ALT 42 (4-49) U/L Alkaline Phosphatase 79 (38-126) U/L C-Reactive Protein 0.9 (<1.0) mg/dL Total Protein 6.8 (6.3-8.2) g/dL Albumin 4.2 (3.5-5.0) g/dL - Radiology Data Radiology results: report reviewed, image reviewed Disposition Clinical Impression: Liposarcoma, Cervical radiculopathy at C7, Abnormal MRI, cervical spine, Cervical spinal cord compression Disposition: OTHER INSTITUTION NOT DEFINED Referrals: None,Stated [Primary Care Provider] - 1-2 days - Out of Hospital Transfer - Req. Specs Out of Hospital Transfer - Requested Specifics: Other Emergency Center ([facility])
[2024-06-07] MEDS: HYDROmorphone 1 MG/ML 1 ML SYRINGE IVP STA ×2 (12:48→13:58)
[2024-06-07] MEDS: KETOROLAC 15 MG/ML 1 ML VIAL IVP STA (12:48)
[2024-06-07 13:03] LABS: Basophils # (A) 0.04 10*3/uL (0.00-0.10); Basophils % (A) 0.5 %; Eosinophils # (A) 0.27 10*3/uL (0.04-0.35); Eosinophils % (A) 3.7 %; HCT 43.5 % (39.6-50.0); HGB 14.5 g/dL (13.0-17.0); Lymphocytes # (A) 1.87 10*3/uL (0.90-5.00); Lymphocytes % (A) 25.5 %; MCH 29.1 pg (27.0-32.0); MCHC 33.3 g/dL (32.0-37.0); MCV 87.3 fL (80.0-97.0); Mean Platelet Volume 8.7 fL (9.5-12.2); Monocytes # (A) 0.71 10*3/uL (0.20-1.00); Monocytes % (A) 9.7 %; Neutrophils # (A) 4.42 10*3/uL (1.80-7.70); Neutrophils % (A) 60.2 %; Platelet Count 216 10*3/uL (140-440); RBC 4.98 10*6/uL (4.40-5.60); RDW 12.9 % (11.5-14.5); WBC 7.34 10*3/uL (4.50-10.00)
[2024-06-07 13:20] LABS: ALT 42 U/L (4-49); AST 30 U/L (17-59); African American GFR (CKD) >90 (>60 ml/min/1.73 sqM); Albumin 4.2 g/dL (3.5-5.0); Alkaline Phosphatase 79 U/L (38-126); Anion Gap 10 mmol/L; Blood Urea Nitrogen 10 mg/dL (9-20); C Reactive Protein 0.9 mg/dL (<1.0); Calcium 9.1 mg/dL (8.4-10.2); Carbon Dioxide 25 mmol/L (22-30); Chloride 102 mmol/L (98-107); Glucose 99 mg/dL (74-99); Non-African American GFR(CKD) >90 (>60 ml/min/1.73 sqM); Potassium 4.3 mmol/L (3.5-5.1); Sodium 137 mmol/L (137-145); Total Bilirubin 0.2 mg/dL (0.2-1.3); Total Protein 6.8 g/dL (6.3-8.2)
--- NOTE | 2024-06-07 13:51 | XR ---
EXAMINATION TYPE: XR chest 2V DATE OF EXAM: 06/07/2024 1:48 PM COMPARISON: 12/09/2021 CLINICAL INDICATION: Male, 33 years old with history of Cough, TECHNIQUE: XR chest 2V view(s) obtained. FINDINGS: The heart size is normal. The pulmonary vasculature is normal. The lungs are clear. IMPRESSION: 1. No acute pulmonary process. [facility], , 06/07/2024 1:49 PM
[2024-06-07 14:59] VITALS: BP 136/80; PULSE 82; RESP 20; TEMP 98.4
== END 2024-06-07 14:59 | disposition other institution (70) ==
LOC: EC 11:33
DX: M54.12 Radiculopathy, cervical region (principal); C49.9 Malignant neoplasm of connective and soft tissue, unspecified; G95.20 Unspecified cord compression; M50.90 Cervical disc disorder, unspecified, unspecified cervical region; Z87.891 Personal history of nicotine dependence
CPT/HCPCS: 36415; 80053; 83605; 85025; 86140; 71046; 99285; 96374; 96375; 96376; J1171; J1885

== ENCOUNTER → 2024-07-18 | Outpatient (CLI) | payer OTHER ==
--- NOTE | 2024-07-18 13:59 | PE ---
EXAMINATION TYPE: PET CT fusion whole body DATE OF EXAM: 07/18/2024 COMPARISON: Prior PET/CT March 21, 2024 HISTORY: Liposarcoma left leg diagnosed in 2022 TECHNIQUE: Following the intravenous administration of 12.02 mCi of F-18 FDG, whole body images are performed from the top of skull to the bottom of the. Images are reviewed on the computer in the cor onal, axial, and sagittal planes. Reconstructed rotating images are created on independent workstati on and reviewed on the computer. A localization and attenuation correction CT is performed in conju nction with the PET scan. Blood glucose level equals 125 SCAN: Subsequent Scan FINDINGS: HEAD AND NECK: No areas of new suspicious abnormal hypermetabolic uptake. CHEST, MEDIASTINUM, AND HILAR REGION: No new areas of abnormal hypermetabolic uptake. ABDOMEN AND PELVIS: No new areas of abnormal hypermetabolic uptake. OSSEOUS STRUCTURES: Mild hypermetabolic uptake near the lumbosacral junction and left iliac bone is r edemonstrated without CT correlate. LOWER EXTREMITIES: Left mid femoral amputation is redemonstrated. Focal hypermetabolic uptake at the amputation site anterolaterally is now identified without definitive CT correlate. Max SUV is 7.19. OTHER CT: Tiny fat-containing umbilical hernia is redemonstrated. Enlarged main pulmonary artery sugg ests underlying pulmonary artery hypertension. Correlate clinically. IMPRESSION: There is now abnormal focal hypermetabolic uptake anterolateral aspect of the left mid fe mur at site of amputation without definitive CT correlate, local recurrence cannot be excluded, corre late clinically. Consider MRI without and with contrast evaluation to further evaluate. No new metast atic disease definitively seen. [facility], , 07/18/2024 1:56 PM
== END | disposition home or self-care (01) ==
LOC: RADPETMAIN 07:08
PROVIDERS: ATTEND Internal Medicine
DX: C49.22 Malignant neoplasm of connective and soft tissue of left lower limb, including hip (principal)
CPT/HCPCS: 78816; A9552